=== PATIENT | male | born 1950 | race Caucasian/White ===

== ENCOUNTER 2017-04-28 17:03 | Inpatient (IN) | payer OTHER ==
--- NOTE | 2017-04-28 17:19 | EDPHY ---
H & P Stated Complaint: pt came for leg inf but was tachypneic and hypoxic at triage HPI/ROS: CHIEF COMPLAINT: Bilateral leg infection, shortness of breath HISTORY OF PRESENT ILLNESS: The patient is a 66 y/o male with a history of tobacco abuse presenting with a bilateral leg infection and pain, the left leg is more painful than the right. For the past week has has felt more short of breath than usual and reports a cough with sputum production. His throat feels dry. He went to [facility] for his leg infection, and was prescribed Keflex and Bactrim on 04/21/17. He has been compliant with these antibiotics. Today he is experiencing chills and sweats. Denies illicit drug or alcohol use. At triage he was tachypneic and hypoxic. Denies chest pain, abdominal pain, vomiting, urinary or bowel complaints. In addition to his extremity and pulmonary symptoms, he is also complaining of body lice. REVIEW OF SYSTEMS: A ten point review of systems was performed and is negative with the exception of the items mentioned in the HPI. Past medical history: Denies but has a history of tobacco abuse, smoking 1 pack per day. Past surgical history: 1. Appendectomy 2. L5-S1 surgery Family history: Denies Social history: Transient, homeless, single, smoker (38 years), no alcohol or illicit drug use. General Appearance: Alert. Disheveled. Poor personal hygiene. Vital signs reviewed. Respiratory rate 34, room air pulse ox 76% at triage. Hair and holder are long and matted. Eyes: Pupils equal and round, no conjunctival injection, no discharge. Anicteric. ENT, Mouth: Mucous membranes are dry, no oropharyngeal erythema or edema. Neck: No lymphadenopathy, supple. Respiratory: Distant breath sounds with bilateral wheezes to auscultation. No rales, or rhonchi. Cardiovascular: Regular rate and rhythm; no murmur, rub, or gallop. Gastrointestinal: Abdomen is soft and nontender, no masses or organomegaly, bowel sounds normal. Skin: Excoriations on chests, arms, and legs. Lower extremities have blistering and weeping, no purulence. No significant warmth of lower extremities. Back: Nontender to palpation over the thoracolumbar spine. No CVAT. Extremities: Bilateral foot maceration. Bilateral pedal edema to the knees. Superficial ulcerations both lower extremities. Neurological: Alert and oriented. Moving all four extremities easily and equally. GIL. EOMI. Tongue midline. Facial expressions symmetric. Psychiatric: Normal affect. - Personal History Current Tetanus/Diphtheria Vaccine: Unsure - Medical/Surgical History Hx Asthma: No Hx Chronic Respiratory Disease: No Hx Diabetes: No Hx Cardiac Disease: No Hx Renal Disease: No Hx Cirrhosis: No Hx Alcoholism: No Hx HIV/AIDS: No Hx Splenectomy or Spleen Trauma: No Other PMH: denies - Social History Smoking Status: Current every day smoker Constitutional: Initial Vital Signs Temperature (C) 36.8 C 04/28/17 17:11 Heart Rate 87 04/28/17 17:11 Respiratory Rate 34 H 04/28/17 17:11 Blood Pressure 119/62 04/28/17 17:11 O2 Sat (%) 76 L 04/28/17 17:11 O2 Delivery Mode Nasal Cannula O2 (L/minute) 2 Allergies/Adverse Reactions: No Known Allergies Allergy (Unverified 04/28/17 17:11) Home Medications: Medication Instructions Recorded Sulfamethox/Tmp 800/160 mg 1 tab PO BID 04/28/17 [Bactrim Ds] Medical Decision Making - Diagnostics Imaging: Discussed imaging studies w/ director medical economics Radiologist, I viewed and interpreted images myself ED Course/Re-evaluation: The patient is a 66 y/o male presenting with shortness of breath and a bilateral leg infection. His legs are currently wrapped from a treatment at [facility]. At triage he was tachypneic and hypoxic; patient was subsequently placed on supplemental oxygen. His respiratory rate was 34 at triage with a pulse oximetry of 76% on room air. On 4 L nasal cannula his subsequent pulse ox was 97%. At triage his blood pressure was 119/62 with a heart rate of 87. He is afebrile. He does not meet sepsis criteria based upon triage vital signs. Chest x-ray and labs ordered. DuoNeb administered. 1815: Reassessed patient. He is receiving a DuoNeb; his breath sounds are still distant. I examined his lower extremities, there is bilateral maceration to his feet. Denies history of lanza bite but I am concerned as his feet were in wet socks and he lives outside. His lower extremities are edematous and erythematous, not particularly warm to the touch. There is superficial ulcers on his legs. Patient will need to admitted for more extensive care of his lower extremities. I suspect cellulitis combined with exposure. He has been taking oral antibiotics but will likely require IV antibiotics (vancomycin). His white blood cell count is elevated 18,000. I am not finding evidence of a pulmonary infection. He has no urinary symptoms. His abdomen is soft and nontender and I do not suspect an intra-abdominal process or infection. He appears to be mentating normally and is cooperative in the emergency department. No meningeal signs. No signs of trauma. He is hyponatremic and likely dehydrated. 1925: Spoke with radiologist, regarding the patient's chest x-ray. His x-ray reveals a COPD. My initial concern was that he had a pneumonia. He was given ceftriaxone. However, there is no infiltrate on his chest x-ray. This appears to be a COPD exacerbation. He will be treated with nebulizers and steroids. 1934: Consulted with hospitalist service, Dr. Rodriguez accepts admission of this patient. 125mg IV Solu-Medrol administered. 2017: Reassessed patient, he is comfortable with plan for admission. It appears he has bed bugs--there are bugs seen on his bed and I suspect that they are bed bugs, he will be sent to the shower but is currently refusing to cut his hair. I have not seen lice. I do not see evidence of scabies either. Patient was taken to the shower and then admitted to his hospital bed. I note, in retrospect, [place] [id number] he meets sepsis criteria. The admitting physician has recognized this and has ordered the appropriate laboratory studies and IV fluids. - Data Points Laboratory Results: Laboratory Results 04/28/17 19:00 04/28/17 19:00 04/28/17 19:00 Procalcitonin 0.07 ng/mL ng/mL (0.02-0.10) Medications Given: Albuterol (Proventil Neb) 3 ml IH QID [facility] Stop: 10/25/17 20:59 Last Admin: 04/29/17 04:55 Dose: Not Given Vancomycin/Sodium Chloride (Vancomycin 1 Gm (Premix)) 250 mls @ 250 mls/hr IV Q12H [facility] Stop: 05/28/17 23:29 Last Admin: 04/29/17 01:05 Dose: 250 mls Oxycodone HCl (Oxycodone Ir) 5 - 10 mg PO Q3HRS PRN PRN Reason: Pain, Severe Able to Take PO Stop: 05/08/17 20:26 Last Admin: 04/29/17 09:52 Dose: 5 mg Discontinued Medications Albuterol/Ipratropium (Duoneb) 3 ml IH EDNOW ONE Stop: 04/28/17 17:33 Last Admin: 04/28/17 17:48 Dose: 3 ml Ceftriaxone Sodium 1 gm/ (Sterile Water) 10 mls @ 150 mls/hr IV EDNOW ONE PRN Reason: Protocol Stop: 04/28/17 20:11 Last Admin: 04/28/17 21:16 Dose: 10 mls Sodium Chloride (Ns) 1,000 mls @ 75 mls/hr IV CONT [facility]IO Stop: 04/30/17 09:49 Last Admin: 04/28/17 23:14 Dose: 1,000 mls Sodium Chloride (Ns) 500 mls @ 500 mls/hr IV ONCE ONE Stop: 04/28/17 23:42 Last Admin: 04/28/17 23:13 Dose: 500 mls Methylprednisolone Sodium Succinate (Solu-Medrol) 125 mg IVP EDNOW ONE Stop: 04/28/17 19:34 Last Admin: 04/28/17 19:36 Dose: 125 mg Methylprednisolone Sodium Succinate (Solu-Medrol) 60 mg IVP Q6HRS MARIO Stop: 10/26/17 00:00 Last Admin: 04/29/17 09:43 Dose: Not Given Permethrin (Elimite 5%) 1 manuel TP ONCE ONE Stop: 04/29/17 06:01 Last Admin: 04/29/17 08:55 Dose: 1 manuel Pyrethrins/Piperonyl Butoxide (Lice Combo Kit) 118 ml TP ONCE ONE Stop: 04/29/17 07:40 Last Admin: 04/29/17 08:30 Dose: 1 manuel Departure - Departure Disposition: [facility] Clinical Impression: COPD exacerbation, Maceration of skin Cellulitis Qualifiers: Site of cellulitis: extremity Site of cellulitis of extremity: lower extremity Laterality: unspecified laterality Qualified Code(s): L03.119 - Cellulitis of unspecified part of limb Condition: Fair Report Scribed for: Cora Beltre Report Scribed by: Xochitl Briceño Date of Report: 04/28/17 Time of Report: 17:19 Physician Review and Approval Statement: 04/28/17 17:19 Portions of this note were transcribed by the internist medical doctor md. I, Dr. Cora Beltre, personally performed the history, physical exam, and medical decision- making; and confirmed the accuracy of the information in the transcribed note.
[2017-04-28] MEDS ORDERED: IPRATROPIUM/ALBUTEROL 3 ML DEYVIAL IH ONE (17:32)
[2017-04-28 19:16] LABS: PLATELET COUNT 413 10^3/uL (150-400)
[2017-04-28] MEDS ORDERED: methylPREDNISolone SOD SUCC 125 MG/2 ML VIAL IVP ONE (19:33)
[2017-04-28] MEDS ORDERED: cefTRIAXone 1 GM in STERILE WATER INJ 10 ML IV ONE (20:08)
[2017-04-28] MEDS ORDERED: ONDANSETRON DISINTEGRATING 4 MG TAB PO PRN (20:27)
[2017-04-28] MEDS ORDERED: oxyCODONE IR 5 MG TAB PO PRN (20:27)
[2017-04-28] MEDS ORDERED: ACETAMINOPHEN 325 MG TAB PO PRN (20:27)
[2017-04-28] MEDS ORDERED: ONDANSETRON 4 MG/2 ML VIAL IVP PRN (20:27)
[2017-04-28] MEDS ORDERED: ALBUTEROL 3 ML DEYVIAL IH PRN (20:27)
[2017-04-28] MEDS ORDERED: NS 1,000 ML IV SCH (20:30)
--- NOTE | 2017-04-28 22:33 | PDGENHP ---
History and Physical - Chief Complaint SOB, leg infection - History of Present Illness The patient is a 66 y/o male presenting with fever, malaise, and SOB. He was recently seen in clinica and started on abx for bilateral leg infection. He also c/o of SOB with cough. He has a long hx of tobacco use. He was 76% on RA in the E.D. WBC was increased at 18.54. He was started on Rocephin and given Solumedrol CXR shows peribronchial thickening and hyperexpansion. There is no e/o infection He does not have any urinary sx's He denies CP, palpitations. He is homeless He also c/o of Lice PMHx: tobacco abuse, homelessness Past surgical history: 1. Appendectomy 2. L5-S1 surgery Family history: [place] Social history: tobacco use, denies ETOH or illicits History Information - Allergies/Home Medication List Allergies/Adverse Reactions: No Known Allergies Allergy (Unverified 04/28/17 17:11) Home Medications: Sulfamethox/Tmp 800/160 mg [Bactrim Ds] 1 tab PO BID 04/28/17 [Last Taken 09:00] I have personally reviewed and updated: medical history, social history - Social History Smoking Status: Current every day smoker Review of Systems Review of Systems: ROS: 10pt was reviewed & negative except for what was stated in HPI & below Physical Exam Physical Exam: Temp Pulse Resp BP Pulse Ox 36.8 C 79 24 H 115/63 94 04/28/17 17:11 04/28/17 21:15 04/28/17 21:15 04/28/17 21:15 04/28/17 21:15 O2 (L/minute) 2 Constitutional: no apparent distress Eyes: PERRL, EOMI Ears, Nose, Mouth, Throat: dry mucous membranes Cardiovascular: regular rate and rhythym, edema Respiratory: reduced air movement, expiratory wheeze, No no respiratory distress Gastrointestinal: normoactive bowel sounds, soft, non-tender abdomen Skin: warm Neurologic: No AAOx3 Psychiatric: interacting appropriately, not anxious Lymph, Heme, Immunologic: No petechiae Lab Data & Imaging Review 04/28/17 19:00 04/28/17 19:00 WBC 18.54 10^3/uL (3.80-9.50) H 04/28/17 19:00 RBC 4.95 10^6/uL (4.40-6.38) 04/28/17 19:00 Hgb 13.7 g/dL (13.7-17.5) 04/28/17 19:00 Hct 42.2 % (40.0-51.0) 04/28/17 19:00 MCV 85.3 fL (81.5-99.8) 04/28/17 19:00 MCH 27.7 pg (27.9-34.1) L 04/28/17 19:00 MCHC 32.5 g/dL (32.4-36.7) 04/28/17 19:00 RDW 14.9 % (11.5-15.2) 04/28/17 19:00 Plt Count 413 10^3/uL (150-400) H 04/28/17 19:00 MPV 9.4 fL (8.7-11.7) 04/28/17 19:00 Neut % (Auto) 88.9 % (39.3-74.2) H 04/28/17 19:00 Lymph % (Auto) 4.7 % (15.0-45.0) L 04/28/17 19:00 Ward % (Auto) 4.5 % (4.5-13.0) 04/28/17 19:00 Eos % (Auto) 0.1 % (0.6-7.6) L 04/28/17 19:00 Baso % (Auto) 0.5 % (0.3-1.7) 04/28/17 19:00 Nucleat RBC Rel Count 0.0 % (0.0-0.2) 04/28/17 19:00 Absolute Neuts (auto) 16.48 10^3/uL (1.70-6.50) H 04/28/17 19:00 Absolute Lymphs (auto) 0.87 10^3/uL (1.00-3.00) L 04/28/17 19:00 Absolute Monos (auto) 0.84 10^3/uL (0.30-0.80) H 04/28/17 19:00 Absolute Eos (auto) 0.01 10^3/uL (0.03-0.40) L 04/28/17 19:00 Absolute Basos (auto) 0.09 10^3/uL (0.02-0.10) 04/28/17 19:00 Absolute Nucleated RBC 0.00 10^3/uL (0-0.01) 04/28/17 19:00 Immature Gran % 1.3 % (0.0-1.1) H 04/28/17 19:00 Immature Gran # 0.25 10^3/uL (0.00-0.10) H 04/28/17 19:00 Sodium 131 mEq/L (135-145) L 04/28/17 19:00 Potassium 4.5 mEq/L (3.5-5.2) 04/28/17 19:00 Chloride 92 mEq/L (97-110) L 04/28/17 19:00 Carbon Dioxide 25 mEq/l (22-31) 04/28/17 19:00 Anion Gap 14 mEq/L (8-16) 04/28/17 19:00 BUN 21 mg/dL (7-23) 04/28/17 19:00 Creatinine 0.7 mg/dL (0.7-1.3) 04/28/17 19:00 Estimated GFR > 60 04/28/17 19:00 Glucose 71 mg/dL (70-100) 04/28/17 19:00 Calcium 9.2 mg/dL (8.5-10.4) 04/28/17 19:00 Nasal Influenza A PCR NEGATIVE FOR FLU A (NEGATIVE) 04/28/17 18:30 Nasal Influenza B PCR NEGATIVE FOR FLU B (NEGATIVE) 04/28/17 18:30 Assessment & Plan Assessment: #Acute Respiratory Failure #Fever with SIRS per criteria (Fever, Tachypnea, Leukocytosis) #COPD exacerbation #Cellulitis, bilateral lower extremity #Dehydration #Hyponatremia Plan: -admission -Provide IVF now -PC, lactic acid, send blood cultures now -He was given Rocephin in the E.D. I will also provide Vancomycin. Other than cellulitis, I do not see a source. Pending clinical course, he can likely continue Vancomycin alone -Cont Solumedrol, schedule nebs -Lovenox for DVT proph Total critical time spent is 60 mins for this patient meeting SIRS criteria with resp failure and significant dehydration, possibly sepsis.
[2017-04-28] MEDS ORDERED: NS 500 ML IV ONE (22:43)
[2017-04-29] MEDS: ALBUTEROL 3 ML DEYVIAL IH SCH ×4 (00:15→17:04)
[2017-04-29] MEDS: VANCOMYCIN HCL/NORMAL SALINE 250 ML IV SCH ×3 (01:05→17:35)
[2017-04-29] MEDS: methylPREDNISolone SOD SUCC 125 MG/2 ML VIAL IVP SCH ×2 (01:30→09:43)
[2017-04-29] MEDS ORDERED: PERMETHRIN 5% 60 GM CREAM TP ONE (06:00)
--- NOTE | 2017-04-29 06:36 | HOSPPROG ---
Hospitalist Progress Note Assessment/Plan: Called to patient's bedside by RN and ARN due to erratic behavior. Patient refusing all care and causing disturbance on the unit for staff and other patients. Upon evaluation patient is confrontational and irrational. He is unable to explain to me why he is here and why he needs medical care. Noting hypoxia, respiratory distress, and sepsis physiology patient is at high risk for poor outcome. I do not believe he has medical decision making capacity at this time noting his inability to understand his current situation and the consequences of leaving against medical advice. As a result, I will put him on a medical detainer at this time. Objective: Vital Signs Temp Pulse Resp BP Pulse Ox 36.8 C 74 20 137/83 H 95 04/29/17 04:11 04/29/17 04:11 04/29/17 04:11 04/29/17 04:11 04/29/17 04:11 04/28/17 04/29/17 04/30/17 05:59 05:59 05:59 Intake Total 30 Output Total 250 Balance -220 ICD10 Worksheet Patient Problems: Problems Problem Status Onset COPD exacerbation Acute Cellulitis Acute Maceration of skin Acute
[2017-04-29] MEDS ORDERED: LICE KILLING SHAMPOO 118 ML TP ONE (07:39)
[2017-04-29] MEDS: ENOXAPARIN 40 MG/0.4 ML SYR SC SCH (10:00)
[2017-04-29] MEDS ORDERED: ALTEPLASE 2 MG VIAL IVP PRN (10:06)
[2017-04-29] MEDS: predniSONE 20 MG TAB PO SCH (11:01)
[2017-04-29] MEDS: CEPHALEXIN 500 MG CAP PO SCH ×3 (11:01→17:41)
[2017-04-29] MEDS: IPRATROPIUM/ALBUTEROL 3 ML DEYVIAL IH SCH ×3 (11:31→23:45)
--- NOTE | 2017-04-29 15:00 | WOCRNPDOC ---
WOCRN Advanced Assessment Note - Skin Integrity Problem, Advanced Assess Left Toe Dressing Type: Open to Air Exudate Amount: None Exudate Characteristic(s): None Gypsy Wound Tissue: Blanching, Erythema Gypsy Wound Swelling: None Wound Bed Color: Black Wound Bed Constitution: Stable Eschar Site Measurement - Head-to-Toe Length X Width X Depth (cm): L 2nd toe: 0.6cmx0.5cmx eschar. L3rd toe: 0.7cmx0.5cmx eschar Skin Integrity Problem Comment: Stable, dry eschar noted to L 2nd and 3rd toes along the medial aspect. Uncertain if these wounds are the result of frostbite or arterial insufficiency, or a combination of both. Erythema throughout entire LLE, extending up to just below knee. Skin is taut, trace pitting edema in the L foot. I was unable to palpate a DP pulse in this extremity, and am averse to applying any dressing that might confer moisture to necrotic tissue. Will write order to paint eschar on the toes w/ Povidone/Iodine swabs BID until arterial sufficiency can be confirmed. Bilateral Lower Leg Dressing Type: Open to Air Exudate Characteristic(s): Dried Gypsy Wound Tissue: Erythema, Swollen, Hemosiderin Staining, Venous Dermatitis, Shiny (hairless, taut), Painful/Tender Wound Bed Color: Black, Brown, Yellow Wound Bed Constitution: Scab, Adhered Slough Skin Integrity Problem Comment: Scattered wounds noted over both lower legs. Erythema throughout BLE, w/ taut, dry skin. Skin changes consistent w/ mixed arterial and venous insufficiency present. There are both diffuse and punctate- appearing wounds w/ dried necrotic tissue evident. I am reluctant to initiate any wound care at this point due to concerns about arterial insufficiency; applying moisture to necrotic tissues could result in wet gangrene. Recommend arterial studies to confirm sufficient blood flow.
--- NOTE | 2017-04-29 15:18 | GCON ---
[f rep st] CONSULTATION PULMONARY CONSULTATION DATE OF CONSULTATION: 04/29/2017 HISTORY OF PRESENT ILLNESS: This patient is a 66-year-old male admitted yesterday through the emerge ncy department when he complained of a fever, shortness of breath, and a foot infection, was found to have an oxygen saturation of 76% on room air. He apparently had been seen in the clinic prior to is and was taking some antibiotics for his foot infection, but continued to have problems. On admiss [facility], again, he had the hypoxemia, a white count of 18,000, and a chest x-ray that showed hyperinflati on. He was diagnosed with a COPD exacerbation and cellulitis. He was also found to have a sodium of 131, as well as lice and scabies. He is homeless and much of his social history is unknown to me. He was treated appropriately with antibiotics, steroids and nebulizers and appeared to be relatively stable, but last evening had difficulty with erratic behavior, apparently was in other patients' room s and became very uncooperative with staff. Subsequently, he was evaluated by the night hospitalist, who thought his medical decision capacity was compromised and put him on a detainer, and he ended up in the intensive care unit. At my visit, he was fairly cooperative, but denied any symptoms other than his feet. He said he had no shortness of breath or cough. Said that he was supposed to be on oxygen as an outpatient, but was uncertain as to why he was not using it now. He was otherwise cooperative. REVIEW OF SYSTEMS: Otherwise negative. PAST MEDICAL HISTORY: As best I can tell, is COPD, chronic hypoxemia, although he does have a hemato crit of only 42, and current cellulitis, as well as lice and scabies. PAST SURGICAL HISTORY: Includes appendectomy and back surgery. SOCIAL HISTORY: He is a current smoker, but no alcohol or IV drug use that I am aware of. MEDICATIONS: At this time, include albuterol p.r.n., DuoNeb q.6 hours, Keflex, Lovenox, Zofran, pred nisone 40 mg a day, and vancomycin. PHYSICAL EXAMINATION: VITAL SIGNS: He was afebrile. His blood pressure 126/54, heart rate 88, resp irations 20, oxygen saturation last recorded was 97% on 2 L, but he was not monitored at the time of my visit. GENERAL: He was fairly unkempt but awake and alert, and in no apparent distress; knew whe re he was and was able to answer questions appropriately. HEENT: His hair was filthy. I did not ex amine closely for lice. Pupils appeared to be equally round and reactive to light, nonicteric and no ninjected. Mucous membranes moist without erythema or exudate. No evidence of thrush. RESPIRATORY: Breath sounds were clear to auscultation bilaterally without wheezes, rubs or rales. HEART: Regul ar rate and rhythm without obvious murmurs, rubs, gallops. ABDOMEN: Soft, nontender, nondistended w ithout hepatosplenomegaly. EXTREMITIES: Lower extremities were different from left to right. The l eft had multiple scabs in varying states of healing without substantial erythema or edema. The right had some edema with some erythema as well. He had significant onychomycoses on both feet. NEUROLOG ICAL: Exam was nonfocal including cranial nerves, deep tendon reflexes. SKIN: As described. OBJECTIVE DATA: Includes labs from yesterday at 1900 hours; his white count was 18.5, hematocrit 42, platelets of 413. Lactate was 3.7, sodium 131, otherwise unremarkable. Flu swab was negative for A and B. Chest x-ray showed no infiltrates but hyperinflation. ASSESSMENT AND PLAN: 1. Probable chronic obstructive pulmonary disease exacerbation, though he does deny shortness of eugenia ath at this time. I agree with the reduction in steroids which certainly could contribute to intermi ttent delirium and psychoses. He denies any symptoms at this time. He is getting scheduled nebulize rs. We could consider a more rapid steroid taper, given his behavioral problems. 2. Cellulitis. He is getting antibiotics. Blood cultures are negative at this time. 3. Scabies and lice. This is being managed by the primary team. 4. Erratic behavior. I will defer to the hospitalist team to determine his decisional capacity, vinod mcneil appears to be relatively intact to me at the moment. /[id number]/[id number]
--- NOTE | 2017-04-29 15:33 | HOSPPROG ---
Hospitalist Progress Note Assessment/Plan: Assessment: 66-year-old male presents with acute foot pain in the setting of necrotic foot wounds and cellulitis complicated by acute encephalopathy Plan: 1. Necrotic foot wounds and cellulitis. The patient definitely has evidence of cellulitis on his bilateral lower extremities with confluent blanchable erythema and central ulcerations, requiring antibiotic therapy. He also has distal toe necrosis and I suspect the patient has an element of frostbite given that he presumably resides outdoors and has elements of foot skin trauma. We do not believe the patient was overtly septic on presentation. -with IV antibiotics indicated, patient is currently refusing peripheral IV lines but has agreed to a PICC line -once the patient has a PICC line in place, will continue administering IV vancomycin, but in the interim, will administer oral Keflex -wound care consultation appreciated, infectious Disease consultation appreciated -will get aortic runoff as well as lower extremity angiography to determine whether the patient has adequate blood supply for wound care or whether he needs a surgical evaluation given absent dorsalis pedis pulses 2. Acute hypoxic respiratory failure. Evidenced by SpO2 of 76% on room air, objective tachypnea respiratory rate of 34, symptomatic shortness of breath, audible wheezing, visible tachypnea, most likely secondary to acute COPD exacerbation. -continue on supplemental oxygen, patient does not wear oxygen at baseline, currently requiring 4.5 L -continue treatment for acute COPD exacerbation 3. Acute COPD exacerbation. Patient issue lysed on IV steroids and scheduled duo nebs, patient's IV steroids have been converted to oral given his lack of IV access as well as possible acute agitation and aggression in the setting of high-dose steroids -continue on prednisone 40 mg daily, will engage in a rapid taper if possible -placed on scheduled duo nebs -patient most likely has under treated COPD at baseline, as he is a chronic smoker, and he does not engage in any medical care -appreciate ongoing pulmonary consultation by Dr. Gasca 4. Acute encephalopathy. Evidenced by brain dysfunction characterized as confusion, inability to cooperate or engage in any conversation with last night' s reliability manager provider, patient also wandering into other patient's rooms and causing a disturbance, most likely secondary to the toxic effects of infection -patient placed on a detain her overnight given that he did not appear to have decisional capacity when evaluated by Dr. Patrick -upon my thorough evaluation of the patient this morning, he does have decisional capacity, a detainer will be lifted -if the patient request to leave against medical advice, he should be re- evaluated by the covering hospitalist, determine whether he has decisional capacity at the time of that decision -at the time, he is not gravely disabled an M1 hold would be inappropriate -continue to work with the patient's most likely underlying personality disorder , and will have been able Health Resource nurse assist in his care 5. 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 The patient has voiced to this provider that he would like to be left alone by humans, he does not want to be around humans, and he attempts to live his life away from for humans as much as possible. 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 -appreciate Behavioral Health Resource nurse assistance -will request formal TLC consultation after the patient is medically cleared -will continue to work with the patient to perform care which will be agreeable to him 6. Acute metabolic acidosis. Most likely secondary to volume depletion in the setting of infection, initially received IV fluids in the emergency department, then he refused any additional labs. 7. Acute hyponatremia. Most likely secondary to hypovolemia in the above, patient refused labs this morning for ongoing monitoring. -hopefully once the patient has a PICC line, we will be able to monitor his labs and be as minimally invasive to the patient as possible Diet. Regular Prophylaxis. High risk patient, Lovenox we Code. Full Disposition. Anticipated discharge uncertain, patient remains critically ill with high risk of mortality secondary to his necrotic foot wounds and cellulitis. 50 min of critical care time spent with this patient, at bedside, coordinating care with the ICU staff, specifically addressing his personality issues and encephalopathy as well as his necrotic foot wounds. Subjective: patient wants to be left alone, has pain in feet Objective: Vital Signs Temp Pulse Resp BP Pulse Ox 36.8 C 88 24 H 126/54 H 97 04/29/17 04:11 04/29/17 09:58 04/29/17 09:58 04/29/17 09:58 04/29/17 09:58 04/28/17 04/29/17 04/30/17 05:59 05:59 05:59 Intake Total 30 Output Total 250 Balance -220 - Physical Exam Constitutional: chronically ill appearing, uncomfortable, unkempt, No not in pain (moderate) Cardiovascular: regular rate and rhythym, no murmur, rub, or gallop, other ( diminished pulses bilat dorsalis pedis) Respiratory: reduced air movement (on exp bilat), expiratory wheeze, bronchial breath sounds, respiratory distress (pursed lip breathing) Gastrointestinal: normoactive bowel sounds, soft, non-tender abdomen, no palpable masses Skin: other (confluent erythema bilat LE w/ blanchability, many ulcerations, necrosis bilat toes, open ulcers) Neurologic: AAOx3, sensation intact bilaterally, No facial droop Psychiatric: thought process linear, anxious, agitated, other (demonstrating capacity to make decisions, concentration 7/7, naming 3/3, uncooperative w/ some requests on exam) ICD10 Worksheet Patient Problems: Problems Problem Status Onset COPD exacerbation Acute Cellulitis Acute Maceration of skin Acute
[2017-04-29] MEDS ORDERED: NS 1,000 ML IV SCH (16:00)
[2017-04-30 03:40] LABS: PLATELET COUNT 329 10^3/uL (150-400)
[2017-04-30] MEDS: IPRATROPIUM/ALBUTEROL 3 ML DEYVIAL IH SCH ×4 (05:45→23:25)
[2017-04-30] MEDS: VANCOMYCIN HCL/NORMAL SALINE 250 ML IV SCH ×2 (06:06→17:20)
[2017-04-30] MEDS: ENOXAPARIN 40 MG/0.4 ML SYR SC SCH (11:00)
[2017-04-30] MEDS: predniSONE 20 MG TAB PO SCH (11:00)
[2017-04-30] MEDS: FLUCONAZOLE 100 MG TAB PO SCH (11:00)
[2017-04-30 12:14] LABS: HEPATITIS B SURFACE ANTIGEN NEGATIVE (NEGATIVE)
[2017-04-30 12:31] LABS: HEPATITIS C ANTIBODY TOTAL NEGATIVE (NEGATIVE); HIV TYPE 1 AND 2 NEGATIVE (NEGATIVE)
--- NOTE | 2017-04-30 14:00 | PDINTPN ---
Farm Assistant Progress Note Assessment/Plan: Assessment/plan: 66 M homeless admitted with bilateral foot pain and found to have severe cellulitis and possible frostbite, as well as possible COPD exacerbation. Hospital coutrse complicated by bizzare behavior and inappropriate interaction with other patients, so transferred to ICU for detainer. Also with both scabies and head lice. * COPD- quite stable with minimal O2 requirement. Hard to know what his actual baseline is, but desats to mid 80's on RA. Continue nebs but consdier lower dose steroids (eg pred 20/d with taper over 5 days) to facilitate improved behavioral aspects. * Hypoxia- titrate to sat >90 * Cellulitis- on abx. Vascular studies pending Subjective: denies sob, cp, wheezing Objective: Vital Signs Temp Pulse Resp BP Pulse Ox 36.5 C 71 20 103/50 L 100 04/30/17 08:00 04/30/17 12:08 04/30/17 12:08 04/30/17 08:00 04/30/17 12:08 Laboratory Results 04/30/17 03:20 04/30/17 03:20 04/29/17 04/30/17 05/01/17 05:59 05:59 05:59 Intake Total 30 960 Output Total 250 Balance -220 960 Physical Exam - Physical Exam General Appearance: alert, no apparent distress, other (dishevled, unkempt) EENT: PERRL/EOMI Neck: supple Respiratory: lungs clear, normal breath sounds, No respiratory distress, No accessory muscle use Cardiac/Chest: regular rate, rhythm, edema Abdomen: non-tender, soft, No distended Skin: warm/dry, decubitus, other, No cyanosis Lymphatic: no adenopathy Extremities: pedal edema Neuro/Psych: alert, normal mood/affect, cognition abnormalities ICD10 Worksheet Patient Problems: Problems Problem Status Onset COPD exacerbation Acute Cellulitis Acute Maceration of skin Acute
--- NOTE | 2017-04-30 15:10 | GCON ---
[f rep st] CONSULTATION INFECTIOUS DISEASE DATE OF CONSULTATION: 04/30/2017 REFERRING PHYSICIAN: Alfredo Olivera MD REASON FOR CONSULTATION: Evaluate wounds lower extremity, query cellulitis. HISTORY OF PRESENT ILLNESS: A 66-year-old homeless male who is cared for at [facility], who presents to the emergency room with progressive bilateral lower extremity pain. At the time of evaluation, the patient was also noted to be hypoxic, but today patient denies particularly being short of breath. He also noted on admission that he had chills and sweats and today denies that. He does describe tongue pain for the last couple days and that his cough may be slightly worse than baseline. The patient reports his lower extremity issues started a couple months ago when he wrapped his legs to stay warm and avoid the wind. These wrappings became wet and generated the wounds on his lower extremity. He says he has been treating them by rubbing them aggressively, but they have not healed. Today, discussion regarding etiology of these wounds was discussed with patient , likely a combination of trauma as well as nonhealing due to blood flow limitations likely from peripheral vascular disease, but he refuses further workup at this time. Additional complaints on admission included body lice. REVIEW OF SYSTEMS: A complete 10-point review of systems was performed and is negative except as mentioned in the HPI. The patient describes a 20-pound weight loss over unclear duration of time, which he primarily attributes to limited food supply. PAST MEDICAL AND SURGICAL HISTORY: The patient has longstanding tobacco use, 1- pack per day. He has had an appendectomy and prior back surgery at the L5-S1 level. ALLERGIES: NKDA. MEDICATIONS: Include Prednisone 40 mg and vancomycin 1 g IV q.8. He is also on oxycodone, Zofran, Lovenox, albuterol nebs, and Tylenol. FAMILY HISTORY: The patient is reluctant to provide any additional information. SOCIAL HISTORY: The patient has been in the [facility] for 45 years. He has been homeless for 15. He is not sexually active and single. Denies alcohol and illicit drug use. He has been using tobacco for 38 years. PHYSICAL EXAMINATION: VITAL SIGNS: The patient has been afebrile throughout his hospital course. Temperature 36.3, blood pressure 115/58, heart rate 71, respiratory rate 24, saturation is in the high 80s on room air. GENERAL: This is a disheveled, tanned, thin male, in very mild respiratory distress, but is speaking in complete sentences. He has very poor hygiene. HEENT: No conjunctival hemorrhages. No jaundice. The patient has diffuse white plaques scattered throughout his mouth and minimal residual dentition with obvious dental caries. NECK: Supple. CARDIOVASCULAR: Regular rate and rhythm. No murmurs. CHEST: Poor air movement. Scattered wheezes. No crackles. ABDOMEN: Soft, nontender. : No Georges. Bilateral distended testis. Circumcised phallus. EXTREMITIES: Patient has irregular wounds on bilateral lower extremity with hyperemia surrounding. The base of many of these wounds have areas of necrosis. No fluctuance was detected. Minimal warmth. In fact, his legs are on the cool side. Pulses were not palpable. He has ischemic changes on the tips of his 2nd and 3rd right toes. His capillary refill was okay. Obvious complete absence of hair. NEUROLOGIC: The patient had a somewhat flat affect, but was cooperative. No obvious cranial nerve defects. He was moving all 4 extremities equally. LABORATORY: White count 17, hematocrit 34, platelets of 324, 84% neutrophils. Creatinine 0.6. AST 66, ALT 60, alkaline phosphatase 52. Blood cultures from 04/28: 2 sets are no growth to date. Procalcitonin was 0.07. Flu A and B were negative. Chest x-ray, which was personally reviewed by me, showed expanded lung jolley bilaterally without infiltrate. ASSESSMENT AND PLAN: This is a 66-year-old male who is homeless, who presents with multiple problems. 1. Increased lower extremity pain with findings consistent with ischemic changes, not clearly active cellulitis. Nonetheless, would continue antibiotics for a 48-hour period, monitoring blood cultures and clinical response. Vancomycin is a reasonable choice in this gentleman who is at risk for MRSA due to homelessness. At the time of my exam today, the patient was refusing further workup for ischemic changes. 2. Oral thrush. Would start patient on oral fluconazole 200 mg daily with a duration of therapy 7-10 days. Would send a screening HIV, hep C, hep B. 3. Leukocytosis. The patient has blood cultures pending. No clear focus of infection based on my exam today. This could be a leukemoid reaction due to ischemic changes of the lower extremities. 4. Bedbug/body lice. Patient with extensive dreadlocks, will make getting rid of bedbugs and lice difficult. Will go to additional protocol of systemic therapy with ivermectin 200 mcg/kg x2 doses 7 days apart, which calculates to 12 g based on his weight. time 65min >50% time spent with education of patient about etiology of LE changes and Care coordinated with Dr. Olivera. Will continue to follow the patient on a daily basis. /[id number]/MODL MTDD
[2017-04-30] MEDS: IVERMECTIN 3 MG TAB PO SCH (17:20)
--- NOTE | 2017-04-30 19:46 | HOSPPROG ---
Hospitalist Progress Note Assessment/Plan: Assessment: 66-year-old male presents with acute foot pain in the setting of necrotic foot wounds, suspected ischemic digits, and possible cellulitis complicated by acute encephalopathy and acute hypoxic respiratory failure Plan: # Necrotic foot wounds and suspected digit ischemia. Likely peripheral arterial disease, examined w/ Dr. Valdez - encouraged patient to allow vascular studies (CT angio) to help guide tx plan , he will consider - patient only intermittently taking ASA, will order scheduled w/ lipid panel - cont wound care - cont pain control - begin SNF auth process # Possible cellulitis. Given leukocytosis, erythema, and exposure, will cont tx w/ IV Abx x 48hrs and gauge effect - cont Vanco via PICC - cont monitor WBC # Acute hypoxic respiratory failure. Evidenced by SpO2 of 76% on room air, objective tachypnea respiratory rate of 34, symptomatic shortness of breath, audible wheezing, visible tachypnea, most likely secondary to acute COPD exacerbation. -continue on supplemental oxygen, patient does not wear oxygen at baseline, currently requiring 4.5 L -continue treatment for acute COPD exacerbation # Acute COPD exacerbation. Exp wheeze on presentation, pursed lip breathing -continue on prednisone 40 mg daily, will engage in a rapid taper if possible -placed on scheduled duo nebs -patient most likely has under treated COPD at baseline, as he is a chronic smoker, and he does not engage in any medical care -appreciate ongoing pulmonary consultation by Dr. Gasca # Acute encephalopathy. 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 Patient participating more in care, encouraging him, establishing trust -appreciate Behavioral Health Resource nurse assistance -will request formal TLC consultation after the patient is medically cleared -will continue to work with the patient to perform care which will be agreeable to him # Acute metabolic acidosis. Resolved # Acute hyponatremia. Resolved # Thrush. Started fluconazole 200 # Body lice. Ivermectin started Diet. Regular Prophylaxis. High risk patient, Lovenox Code. Full Disposition. Anticipated discharge uncertain, patient remains ill and unable to care for self. Subjective: ongoing foot pain, patient feels like he can't walk Objective: Vital Signs Temp Pulse Resp BP Pulse Ox 36.4 C 69 20 90/56 L 100 04/30/17 16:00 04/30/17 17:36 04/30/17 17:36 04/30/17 16:00 04/30/17 17:36 Laboratory Results 04/30/17 03:20 04/30/17 03:20 04/29/17 04/30/17 05/01/17 05:59 05:59 05:59 Intake Total 30 960 250 Output Total 250 400 Balance -220 960 -150 - Physical Exam Constitutional: chronically ill appearing, uncomfortable, unkempt, cachectic Cardiovascular: regular rate and rhythym, no murmur, rub, or gallop, other ( absent pulses dorsalis pedis, faint in bilat pops), No edema Respiratory: reduced air movement (on exp), No expiratory wheeze, No inspiratory crackles, No bronchial breath sounds, No respiratory distress Gastrointestinal: normoactive bowel sounds, soft, non-tender abdomen, no palpable masses Skin: other (diffuse ulcerations bilat LE w/ confluent blanchable erythema, somewhat improved from day prior, necrosis sides of toes) Neurologic: AAOx3, sensation intact bilaterally, No facial droop Psychiatric: not encephalopathic, anxious, flat affect, No agitated ICD10 Worksheet Patient Problems: Problems Problem Status Onset COPD exacerbation Acute Maceration of skin Acute Cellulitis Acute
[2017-05-01] MEDS: IPRATROPIUM/ALBUTEROL 3 ML DEYVIAL IH SCH ×3 (05:04→17:18)
[2017-05-01 07:03] LABS: PLATELET COUNT 262 10^3/uL (150-400)
[2017-05-01] MEDS: predniSONE 20 MG TAB PO SCH (08:02)
[2017-05-01] MEDS: ENOXAPARIN 40 MG/0.4 ML SYR SC SCH (08:02)
[2017-05-01] MEDS: VANCOMYCIN HCL/NORMAL SALINE 250 ML IV SCH ×2 (08:03→17:45)
[2017-05-01] MEDS: FLUCONAZOLE 100 MG TAB PO SCH (08:03)
--- NOTE | 2017-05-01 16:47 | HOSPPROG ---
Hospitalist Progress Note Assessment/Plan: Assessment: 66 year-old male presents with acute foot pain in the setting of necrotic foot wounds, suspected ischemic digits, and possible cellulitis complicated by acute encephalopathy and acute hypoxic respiratory failure Plan: # Necrotic foot wounds and suspected digit ischemia. Likely peripheral arterial disease - encouraged patient to allow vascular studies (CT angio) to help guide tx plan , he has declined - patient only intermittently taking ASA, will order scheduled w/ lipid panel - cont wound care - cont pain control - begin SNF auth process, cont work w/ PT, patient may be able to discharge independently if he does not want SNF placement # Possible cellulitis. Given leukocytosis, erythema, and exposure, will cont tx w/ IV Abx another 24hrs and gauge effect - cont Vanco via PICC - erythema substantially improved today # Acute hypoxic respiratory failure. Evidenced by SpO2 of 76% on room air, objective tachypnea respiratory rate of 34, symptomatic shortness of breath, audible wheezing, visible tachypnea, most likely secondary to acute COPD exacerbation as CXR w/o infiltrate (personally interpreted) -continue on supplemental oxygen, patient does not wear oxygen at baseline, currently requiring 4.5 L -continue treatment for acute COPD exacerbation # Acute COPD exacerbation. Exp wheeze on presentation, pursed lip breathing, improved -D#3/5 pred -placed on scheduled duo nebs, adjust to PRN # Acute encephalopathy. 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 Patient participating more in care, encouraging him, establishing trust -appreciate Behavioral Health Resource nurse assistance -will request formal TLC consultation after the patient is medically cleared -will continue to work with the patient to perform care which will be agreeable to him # Acute metabolic acidosis. Resolved # Acute hyponatremia. Resolved # Thrush. Cont fluconazole 200 # Body lice. Ivermectin started, counseled patient regarding underlying reasoning for lengthy hair, he reports he has been growing it since 1997, and, because of a bad experience with someone who convinced him to cut it then, he will never cut it again -cont to assist w/ daily hygiene Diet. Regular Prophylaxis. High risk patient, Lovenox Code. Full Disposition. Anticipated discharge uncertain, patient remains ill and unable to care for self. High level of medical complexity, high risk of worsening morbidity 2/2 issues outlined above. Subjective: patient aware that his hair has bugs, less pain in legs w/ ambulation Objective: Vital Signs Temp Pulse Resp BP Pulse Ox 36.5 C 77 16 114/53 L 98 05/01/17 08:00 05/01/17 09:29 05/01/17 09:29 05/01/17 09:29 05/01/17 09:29 Laboratory Results 05/01/17 06:30 05/01/17 06:30 04/30/17 05/01/17 05/02/17 05:59 05:59 05:59 Intake Total 960 1095 Output Total 1000 250 Balance 960 95 -250 - Physical Exam Constitutional: no apparent distress, not in pain, chronically ill appearing, uncomfortable, cachectic Cardiovascular: regular rate and rhythym, no murmur, rub, or gallop, No edema Respiratory: reduced air movement (on exp bilat), No expiratory wheeze, No inspiratory crackles, No bronchial breath sounds Gastrointestinal: normoactive bowel sounds, soft, non-tender abdomen, no palpable masses, No distension Skin: other (less erythema RLE, ongoing ulcerations LLE w/ some sloughing, necrotic toes, hyperkeratinosis L heel) Neurologic: AAOx3, sensation intact bilaterally, No weakness Psychiatric: not anxious, thought process linear, flat affect, No agitated ICD10 Worksheet Patient Problems: Problems Problem Status Onset COPD exacerbation Acute Maceration of skin Acute Cellulitis Acute
[2017-05-02] MEDS: IPRATROPIUM/ALBUTEROL 3 ML DEYVIAL IH SCH ×3 (00:26→13:55)
[2017-05-02 05:45] LABS: PLATELET COUNT 266 10^3/uL (150-400)
[2017-05-02] MEDS: predniSONE 20 MG TAB PO SCH (07:50)
[2017-05-02] MEDS: VANCOMYCIN HCL/NORMAL SALINE 250 ML IV SCH ×2 (07:50→18:02)
[2017-05-02] MEDS: FLUCONAZOLE 100 MG TAB PO SCH (07:50)
[2017-05-02] MEDS: ASPIRIN EC 325 MG TAB PO SCH (07:50)
[2017-05-02] MEDS: ENOXAPARIN 40 MG/0.4 ML SYR SC SCH (07:50)
--- NOTE | 2017-05-02 17:41 | HOSPPROG ---
Hospitalist Progress Note Assessment/Plan: Assessment: 66 year-old male ("Lost") presents with acute foot pain in the setting of necrotic foot wounds, suspected ischemic digits from PAD, and possible cellulitis complicated by acute encephalopathy and acute hypoxic respiratory failure Plan: # Necrotic foot wounds and suspected digit ischemia w/ likely peripheral arterial disease, unclear if the pain he is experiencing is 2/2 gravity dependent re-perfusion when he walks, or if it is simply exercised-induced ischemia - patient declined CT angio of LE - counseled patient today regarding the possible benefit of confirming a diagnosis of PAD w/ ABIs, so that we could assuredly start sx-targeted therapy ( i.e. cilostazol) and focus our tx for PAD - LDL at goal < 70 - patient only intermittently taking ASA as outpt, so placed on scheduled ASA, patient amenable - may have a neuropathic element, also has sciatica, rec HS gabapentin - cont wound care - cont pain control - begin SNF auth process, cont work w/ PT, patient may be able to discharge independently if he does not want SNF placement # Possible cellulitis. Given leukocytosis, erythema, and exposure, will cont tx w/ IV Abx another 24hrs and gauge effect - cont Vanco via PICC - appreciate ongoing ID consultation, duration of therapy at ID discretion # Acute hypoxic respiratory failure. Most likely secondary to acute COPD exacerbation, resolved # Acute COPD exacerbation. Exp wheeze on presentation, pursed lip breathing, improved - D#4/5 pred - PRN duonebs # Acute encephalopathy. 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 Patient participating more in care, encouraging him, establishing trust -appreciate Behavioral Health Resource nurse assistance -will continue to work with the patient to perform care which will be agreeable to him # Acute metabolic acidosis. Resolved # Acute hyponatremia. Resolved # Thrush. Cont fluconazole 200 # Body lice. Ivermectin started, counseled patient regarding underlying reasoning for lengthy hair, he reports he has been growing it since 1997, and, because of a bad experience with someone who convinced him to cut it then, he will never cut it again -cont to assist w/ daily hygiene Diet. Regular Prophylaxis. High risk patient, Lovenox Code. Full Disposition. Anticipated discharge uncertain, patient remains ill and unable to care for self. High level of medical complexity, high risk of worsening morbidity 2/2 issues outlined above. Subjective: patient reports ongoing pain in legs when he lowers them Objective: Vital Signs Temp Pulse Resp BP Pulse Ox 36.5 C 76 20 126/60 H 94 05/02/17 15:42 05/02/17 07:56 05/02/17 07:56 05/02/17 15:42 05/02/17 07:56 Laboratory Results 05/02/17 05:07 05/02/17 05:07 05/01/17 05/02/17 05/03/17 05:59 05:59 05:59 Intake Total 1095 1000 Output Total 1000 1650 450 Balance 95 -650 -450 - Physical Exam Constitutional: no apparent distress, chronically ill appearing, uncomfortable, cachectic Cardiovascular: regular rate and rhythym, no murmur, rub, or gallop, other ( absent dorsalis pedis, diminished bilat popliteal), No edema Respiratory: reduced air movement (on exp bilat), No expiratory wheeze, No inspiratory crackles, No bronchial breath sounds, No respiratory distress Gastrointestinal: normoactive bowel sounds, soft, non-tender abdomen, no palpable masses, No distension Skin: other (sloughing bilat LE w/ ulcerations, necrosis on toes, and mild blanchable erythema which has faded from presentation) Neurologic: AAOx3, sensation intact bilaterally, No facial droop Psychiatric: not encephalopathic, anxious, flat affect, No agitated ICD10 Worksheet Patient Problems: Problems Problem Status Onset COPD exacerbation Acute Maceration of skin Acute Cellulitis Acute
--- NOTE | 2017-05-02 18:34 | PCMIDPN ---
Assessment/Plan: Assessment: Bilateral lower extremity cellulitis superimposed on circumstantial ischemic changes to the lower extremities. Wounds appear to be healing. Erythema is significantly decreased. Perhaps we can short course the antibiotic treatment for the secondary soft tissue infection. Plan: 1. Continue IV vancomycin. 2. Follow appearance of lower extremities. Hopefully can limit the duration of antibiotic treatment to 7 days. 05/02/17 18:32 05/02/17 18:32 Subjective: Patient is resting in his hospital bed. He states the leg legs still burn. No fevers or chills. Tolerating vancomycin without issue. Objective: Vancomycin # 3 Vital Signs Temp Pulse Resp BP Pulse Ox 36.5 C 76 20 126/60 H 94 05/02/17 15:42 05/02/17 07:56 05/02/17 07:56 05/02/17 15:42 05/02/17 07:56 Laboratory Results 05/02/17 05:07 05/02/17 05:07 05/01/17 05/02/17 05/03/17 05:59 05:59 05:59 Intake Total 1095 1000 1700 Output Total 1000 1650 450 Balance 95 -650 1250 - Physical Exam General Appearance: WD/WN, alert, no apparent distress, non-toxic Respiratory: lungs clear Cardiac/Chest: regular rate, rhythm Skin: normal color, warm/dry, rash (Ischemic rash bilateral lower extremities left greater than right.), No erythema Neuro/Psych: alert, normal mood/affect ICD10 Worksheet Patient Problems: Problems Problem Status Onset COPD exacerbation Acute Cellulitis Acute Maceration of skin Acute
[2017-05-03] MEDS: GABAPENTIN 100 MG CAP PO SCH ×2 (06:32→20:16)
[2017-05-03] MEDS: VANCOMYCIN HCL/NORMAL SALINE 250 ML IV SCH ×2 (06:40→18:14)
[2017-05-03] MEDS: FLUCONAZOLE 100 MG TAB PO SCH (08:10)
[2017-05-03] MEDS: ENOXAPARIN 40 MG/0.4 ML SYR SC SCH (08:10)
[2017-05-03] MEDS: predniSONE 20 MG TAB PO SCH (08:10)
[2017-05-03] MEDS: ASPIRIN EC 325 MG TAB PO SCH (08:10)
--- NOTE | 2017-05-03 15:05 | HOSPPROG ---
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 Subjective: feels chilly today Objective: Vital Signs Temp Pulse Resp BP Pulse Ox 36.4 C 11 L 18 129/70 H 99 05/03/17 08:00 05/03/17 08:00 05/03/17 08:00 05/03/17 08:00 05/03/17 08:00 Laboratory Results 05/02/17 05:07 05/02/17 05:07 05/02/17 05/03/17 05/04/17 05:59 05:59 05:59 Intake Total 1000 2200 Output Total 1650 950 Balance -650 1250 chart reviewed cxr personally reviewed - Physical Exam Constitutional: unkempt Cardiovascular: regular rate and rhythym, no murmur, rub, or gallop Respiratory: no respiratory distress, no rales or rhonchi Gastrointestinal: soft, non-tender abdomen, no palpable masses ICD10 Worksheet Patient Problems: Problems Problem Status Onset COPD exacerbation Acute Maceration of skin Acute Cellulitis Acute
--- NOTE | 2017-05-03 16:14 | ASMTCMCOM ---
CM Note CM Note Notes: 66 year old male admitted for SOB, COPD exascerbation, LE cellulitis. He has a hx of L5-S1 surgery. Patient is homeless and a smoker. Tx IV ABX. CM to follow for discharge needs. Date Signed: 05/03/2017 04:13 PM Electronically Signed By:Vielka Travis LCSW
[2017-05-03] MEDS ORDERED: IOPAMIDOL (ISOVUE 370) 100 ML BTL IV ONE (19:36)
[2017-05-04] MEDS: VANCOMYCIN HCL/NORMAL SALINE 250 ML IV SCH (05:35)
[2017-05-04 05:51] LABS: PLATELET COUNT 177 10^3/uL (150-400)
[2017-05-04] MEDS: FLUCONAZOLE 100 MG TAB PO SCH (08:15)
[2017-05-04] MEDS: ASPIRIN EC 325 MG TAB PO SCH (08:15)
[2017-05-04] MEDS: ENOXAPARIN 40 MG/0.4 ML SYR SC SCH (08:15)
--- NOTE | 2017-05-04 14:41 | PCMIDPN ---
Assessment/Plan: # Mild B LE cellulitis, portal likely ischemic LE ulcers: erythema completely resolved today --dc vancomycin --call ID for additional questions # LE ulcers: awaiting results of CT angio, patient reports he has "blockages" # COPD: patient reports occasional SOB since admit # Body Lice: s/p ivermectin. No bugs visualized today, agree cure difficult with dreadlocks # leukocytosis: multifactorial, including recent steroid burst for COPD meds vancomycin 1gm IV q12, #5 Subjective: patient without specific c/o getting plenty to eat no diarrhea occasional SOB Objective: Vital Signs Temp Pulse Resp BP Pulse Ox 36.5 C 69 16 132/63 H 99 05/04/17 00:00 05/04/17 08:00 05/04/17 08:00 05/04/17 08:00 05/04/17 08:00 Microbiology 04/28/17 22:45 Blood Culture - Final Blood 04/28/17 22:00 Blood Culture - Final Blood Laboratory Results 05/04/17 05:30 05/02/17 05:07 05/03/17 05/04/17 05/05/17 05:59 05:59 05:59 Intake Total 2200 1870 Output Total 950 1375 Balance 1250 495 - Physical Exam General Appearance: alert, no apparent distress, thin EENT: poor dentition Respiratory: other (decreased bs throughout), No accessory muscle use Cardiac/Chest: regular rate, rhythm, other (hyperdynamic precordium) Extremities: other (skin cracking R>L with multiple coalesced superficial ulcers with irregular borders, no purulence, no erythema, no warmth), No pedal edema Neuro/Psych: alert, depressed affect - Time Spent With Patient Time Spent with Patient: greater than 25 minutes Time Spent with Patient: Greater than 25 minutes spent on this patients care, greater than 50% of time spent counseling, educating, and coordinating care regarding the above mentioned plan. ICD10 Worksheet Patient Problems: Problems Problem Status Onset COPD exacerbation Acute Cellulitis Acute Maceration of skin Acute
--- NOTE | 2017-05-04 15:01 | HOSPPROG ---
Hospitalist Progress Note Assessment/Plan: # LLE cellulitis - vanc per ID # peripheral artery disease * Discussed with Interventional Radiology. He has bilateral common iliac artery stenosis that is amenable to stenting * Discussed intervention with patient. 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 Subjective: No new complaints Objective: Vital Signs Temp Pulse Resp BP Pulse Ox 36.5 C 69 16 132/63 H 99 05/04/17 00:00 05/04/17 08:00 05/04/17 08:00 05/04/17 08:00 05/04/17 08:00 Microbiology 04/28/17 22:45 Blood Culture - Final Blood 04/28/17 22:00 Blood Culture - Final Blood Laboratory Results 05/04/17 05:30 05/02/17 05:07 05/03/17 05/04/17 05/05/17 05:59 05:59 05:59 Intake Total 2200 1870 Output Total 950 1375 Balance 1250 495 - Time Spent With Patient Time Spent with Patient: greater than 35 minutes (Counseled regarding iliac artery blockages and stenting procedure) Time Spent with Patient: Greater than 35 minutes spent on this patients care, greater than 50% of time spent counseling, educating, and coordinating care regarding the above mentioned plan. - Physical Exam Constitutional: no apparent distress, appears nourished, not in pain Musculoskeletal: other (Multiple ulcerations bilateral lower extremities with improving erythema) Neurologic: AAOx3 ICD10 Worksheet Patient Problems: Problems Problem Status Onset COPD exacerbation Acute Cellulitis Acute Maceration of skin Acute
[2017-05-04 16:29] LABS: INR 1.21 (0.83-1.16); PROTIME(PATIENT) 15.5 SEC (12.0-15.0)
[2017-05-04] MEDS ORDERED: VANCOMYCIN 1 GM in D5W 250 ML IV SCH (18:00)
[2017-05-04] MEDS: GABAPENTIN 100 MG CAP PO SCH (21:41)
[2017-05-05] MEDS: ENOXAPARIN 40 MG/0.4 ML SYR SC SCH (11:13)
[2017-05-05] MEDS: FLUCONAZOLE 100 MG TAB PO SCH (11:13)
[2017-05-05] MEDS: ASPIRIN EC 325 MG TAB PO SCH (11:13)
--- NOTE | 2017-05-05 12:21 | ASMTCMCOM ---
CM Note CM Note Notes: Patient is not eligible to apply for Medicaid but has to apply for Medicare due to his age of 66.Once he has his Medicare, patient can then apply for Medicaid as secondary. Patient is not able to go through the application process alone but needs an advocate to help him. We will contact Medicare to see if they have case workers to help patient's unable to do this alone. CM will follow. Date Signed: 05/05/2017 12:21 PM Electronically Signed By:Macie Wharton LCSW
--- NOTE | 2017-05-05 15:45 | HOSPPROG ---
Hospitalist Progress Note Assessment/Plan: # LLE cellulitis - vanc per ID # peripheral artery disease * Discussed with Interventional Radiology. He has bilateral common iliac artery stenosis that is amenable to stenting * Discussed intervention with patient. Both interventional Radiology and myself has had multiple discussions with the patient trying to allay his fears. * I think he is still open to it and I have told him that he can take another couple days to think about a with possible scheduling on Wednesday. 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 He is still open to it but needs more time Objective: Vital Signs Temp Pulse Resp BP Pulse Ox 36.6 C 75 18 127/62 H 98 05/05/17 00:00 05/05/17 08:00 05/05/17 08:00 05/05/17 08:00 05/05/17 08:00 Laboratory Results 05/04/17 05:30 05/02/17 05:07 05/04/17 05/05/17 05/06/17 05:59 05:59 05:59 Intake Total 1870 1400 Output Total 1375 2475 Balance 495 -1075 PT 15.5 SEC (12.0-15.0) H 05/04/17 16:10 INR 1.21 (0.83-1.16) H 05/04/17 16:10 - Time Spent With Patient Time Spent with Patient: greater than 35 minutes (Discussing the risk benefit ratio of proceeding with angioplasty) Time Spent with Patient: Greater than 35 minutes spent on this patients care, greater than 50% of time spent counseling, educating, and coordinating care regarding the above mentioned plan. - Physical Exam Constitutional: no apparent distress Musculoskeletal: other (Ischemic looking lower extremities) Psychiatric: interacting appropriately ICD10 Worksheet Patient Problems: Problems Problem Status Onset COPD exacerbation Acute Cellulitis Acute Maceration of skin Acute
--- NOTE | 2017-05-05 16:17 | ASMTCMCOM ---
CM Note CM Note Notes: CM left a msg with aging and disability resource line to inquire if an advocate can come assist pt in applying for Medicare. CM left a msg for Dio (P#: [phone]) at [facility]. CM to follow. Date Signed: 05/05/2017 04:17 PM Electronically Signed By:NICKY Chaudhary
[2017-05-05] MEDS: GABAPENTIN 100 MG CAP PO SCH (21:36)
[2017-05-06] MEDS: ENOXAPARIN 40 MG/0.4 ML SYR SC SCH (09:10)
[2017-05-06] MEDS: FLUCONAZOLE 100 MG TAB PO SCH (09:10)
[2017-05-06] MEDS: ASPIRIN EC 325 MG TAB PO SCH (09:10)
--- NOTE | 2017-05-06 18:21 | HOSPPROG ---
Hospitalist Progress Note Assessment/Plan: # LLE cellulitis - vanc per ID # peripheral artery disease * Discussed with Interventional Radiology. He has bilateral common iliac artery stenosis that is amenable to stenting * Discussed intervention with patient. Both interventional Radiology and myself has had multiple discussions with the patient trying to allay his fears. * I think he is may be still open to it. Will try again tomorrow. Pretty big dispo problem so we have time to work on it. 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 Subjective: still thinking about angioplasty Objective: Vital Signs Temp Pulse Resp BP Pulse Ox 37 C 74 20 118/46 L 96 05/06/17 08:00 05/06/17 08:00 05/06/17 08:00 05/06/17 08:00 05/06/17 08:00 Laboratory Results 05/04/17 05:30 05/02/17 05:07 05/05/17 05/06/17 05/07/17 05:59 05:59 05:59 Intake Total 1400 1000 Output Total 2475 4100 Balance -1075 -3100 PT 15.5 SEC (12.0-15.0) H 05/04/17 16:10 INR 1.21 (0.83-1.16) H 05/04/17 16:10 - Physical Exam Constitutional: no apparent distress, appears nourished, not in pain Musculoskeletal: other (ischemic legs unchanged) Psychiatric: flat affect ICD10 Worksheet Patient Problems: Problems Problem Status Onset COPD exacerbation Acute Cellulitis Acute Maceration of skin Acute
[2017-05-07] MEDS: GABAPENTIN 100 MG CAP PO SCH ×2 (01:13→21:09)
[2017-05-07] MEDS: ASPIRIN EC 325 MG TAB PO SCH (08:01)
[2017-05-07] MEDS: ENOXAPARIN 40 MG/0.4 ML SYR SC SCH (08:01)
[2017-05-07] MEDS: FLUCONAZOLE 100 MG TAB PO SCH (08:01)
[2017-05-07] MEDS: IVERMECTIN 3 MG TAB PO SCH (08:01)
--- NOTE | 2017-05-07 12:32 | ASMTCMCOM ---
CM Note CM Note Notes: I went to speak with patient (please address him by the name 'Lost') today about discharge planning and applying for health insurance. Yesterday, a gentleman named Dio Davis from the [facility] ([phone])came to speak with patient about applying for Medicare but was not able to start the process. Dio told me that I would have to call Medicare to assist patient; I did call [phone] and gave patient information - the title insurance sales representative said that they would call patient here at the hospital. I went to speak with patient about this, encouraged him to answer the phone if it rang, and reiterated the importance of getting signed up for Medicare (of note, he is not interested in SSI). Per Char Staley's recommendation for patient's personality type, I initiated a gentle conversation about patient's expectations upon discharge. He is quite realistic about his situation and realizes that returning to the streets[place]forest in his current condition is not possible. We talked about going to SNF rehab and the hurdles present (lack of insurance at this time, supposed lice infestation) in that plan. The patient expressed that he has had a hard time believing that it's simply lack of blood flow that's preventing his wound healing, which is why he was hesitant to commit to the stenting procedure that was recommended. We talked about how there are likely other factors contributing to his non-healing ulcers (such as poor hygiene and exposure), but that without proper blood supply, there is little chance of meaningful recovery. I asked patient if he wanted to continue living, and he expressed that he is not ready to yet. Given this, he said he's willing to undergo the procedure. Dr Rodriguez, hospitalist, came into the room shortly after our conversation, and patient again agreed to this course of treatment. Dr Rodriguez will consult with IR. Case Management will continue to work with patient on discharge planning and, most importantly, keep track of the status of his Medicare application. I have a feeling we will need to follow up with the Medicare office daily to ensure that they have contacted patient. Again, that number is [phone] Date Signed: 05/07/2017 12:31 PM Electronically Signed By:Leticia Ramos RN
--- NOTE | 2017-05-07 14:15 | HOSPPROG ---
Hospitalist Progress Note Assessment/Plan: New patient encounter # LLE cellulitis - s/p Vanco # peripheral artery disease * Discussed with Interventional Radiology. He has bilateral common iliac artery stenosis that is amenable to stenting * Discussed intervention with patient. Both interventional Radiology and myself has had multiple discussions with the patient trying to allay his fears. * He is now agreeable to stenting. 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 No CP or SOB. No N/V Objective: Vital Signs Temp Pulse Resp BP Pulse Ox 36.5 C 71 20 102/44 L 99 05/07/17 08:00 05/07/17 08:00 05/07/17 08:00 05/07/17 08:00 05/07/17 08:00 Laboratory Results 05/04/17 05:30 05/02/17 05:07 05/06/17 05/07/17 05/08/17 05:59 05:59 05:59 Intake Total 1000 3800 Output Total 4100 3000 Balance -3100 800 PT 15.5 SEC (12.0-15.0) H 05/04/17 16:10 INR 1.21 (0.83-1.16) H 05/04/17 16:10 - Physical Exam Constitutional: chronically ill appearing Eyes: PERRL Ears, Nose, Mouth, Throat: moist mucous membranes, hearing normal Cardiovascular: regular rate and rhythym, No edema Respiratory: reduced air movement Gastrointestinal: normoactive bowel sounds, soft, non-tender abdomen Skin: warm Psychiatric: interacting appropriately Lymph, Heme, Immunologic: No petechiae ICD10 Worksheet Patient Problems: Problems Problem Status Onset COPD exacerbation Acute Cellulitis Acute Maceration of skin Acute
[2017-05-08] MEDS: ASPIRIN EC 325 MG TAB PO SCH (08:01)
[2017-05-08] MEDS: ENOXAPARIN 40 MG/0.4 ML SYR SC SCH (08:02)
--- NOTE | 2017-05-08 12:28 | HOSPPROG ---
Hospitalist Progress Note Assessment/Plan: # LLE cellulitis - s/p Vanco # peripheral artery disease * Discussed with Interventional Radiology. He has bilateral common iliac artery stenosis that is amenable to stenting * Discussed intervention with patient. Both interventional Radiology and myself has had multiple discussions with the patient trying to allay his fears. * He is now agreeable to stenting. 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 Subjective: no new complaints Objective: Vital Signs Temp Pulse Resp BP Pulse Ox 36.6 C 71 14 116/61 97 05/08/17 08:00 05/08/17 08:00 05/08/17 08:00 05/08/17 08:00 05/08/17 08:00 Laboratory Results 05/04/17 05:30 05/02/17 05:07 05/07/17 05/08/17 05/09/17 05:59 05:59 05:59 Intake Total 3800 Output Total 3000 400 Balance 800 -400 PT 15.5 SEC (12.0-15.0) H 05/04/17 16:10 INR 1.21 (0.83-1.16) H 05/04/17 16:10 - Physical Exam Constitutional: no apparent distress Eyes: PERRL Ears, Nose, Mouth, Throat: moist mucous membranes Cardiovascular: regular rate and rhythym Respiratory: no respiratory distress Gastrointestinal: normoactive bowel sounds Skin: warm Psychiatric: interacting appropriately, not anxious, No encephalopathic ICD10 Worksheet Patient Problems: Problems Problem Status Onset COPD exacerbation Acute Cellulitis Acute Maceration of skin Acute
[2017-05-08] MEDS: GABAPENTIN 100 MG CAP PO SCH (21:59)
[2017-05-09] MEDS: ASPIRIN EC 325 MG TAB PO SCH (09:30)
[2017-05-09] MEDS: ENOXAPARIN 40 MG/0.4 ML SYR SC SCH (09:30)
--- NOTE | 2017-05-09 11:49 | HOSPPROG ---
Hospitalist Progress Note Assessment/Plan: # LLE cellulitis - s/p Vanco # peripheral artery disease * Discussed with Interventional Radiology. He has bilateral common iliac artery stenosis that is amenable to stenting * Discussed intervention with patient. Both interventional Radiology and myself has had multiple discussions with the patient trying to allay his fears. * He is now agreeable to stenting. 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 NPO tonight Subjective: No O/N events. No new complaints. Objective: Vital Signs Temp Pulse Resp BP Pulse Ox 36.6 C 77 16 92/55 L 92 05/09/17 08:00 05/09/17 08:00 05/09/17 08:00 05/09/17 08:00 05/09/17 08:00 Laboratory Results 05/04/17 05:30 05/02/17 05:07 05/08/17 05/09/17 05/10/17 05:59 05:59 05:59 Intake Total 2900 Output Total 400 1450 Balance -400 1450 PT 15.5 SEC (12.0-15.0) H 05/04/17 16:10 INR 1.21 (0.83-1.16) H 05/04/17 16:10 - Physical Exam Constitutional: no apparent distress Eyes: PERRL, EOMI Ears, Nose, Mouth, Throat: moist mucous membranes, hearing normal Cardiovascular: No edema Respiratory: no respiratory distress Gastrointestinal: No distension Neurologic: AAOx3 Psychiatric: interacting appropriately, not anxious, not encephalopathic ICD10 Worksheet Patient Problems: Problems Problem Status Onset COPD exacerbation Acute Cellulitis Acute Maceration of skin Acute
[2017-05-09] MEDS: GABAPENTIN 100 MG CAP PO SCH (20:58)
[2017-05-10 05:53] LABS: PLATELET COUNT 210 10^3/uL (150-400)
[2017-05-10 05:57] LABS: INR 0.95 (0.83-1.16); PROTIME(PATIENT) 12.9 SEC (12.0-15.0)
[2017-05-10] MEDS: ASPIRIN EC 325 MG TAB PO SCH (09:01)
[2017-05-10] MEDS ORDERED: NALOXONE HCL 0.4 MG/ML INJ IVP PRN (16:14)
[2017-05-10] MEDS ORDERED: HEPARIN 10,000 UNIT/10 ML MDV (1,000 UNIT/ML) IVP PRN (16:14)
[2017-05-10] MEDS ORDERED: PROTAMINE SULFATE 50 MG/5 ML VIAL IVP PRN (16:14)
[2017-05-10] MEDS ORDERED: FLUMAZENIL 0.5 MG/5 ML MDV IVP PRN (16:14)
[2017-05-10] MEDS ORDERED: MIDAZOLAM 2 MG/2 ML VIAL IVP PRN (16:14)
[2017-05-10] MEDS ORDERED: ALTEPLASE 2 MG VIAL IVP PRN (16:14)
[2017-05-10] MEDS ORDERED: MEPERIDINE 25 MG/ML SYR IVP PRN (16:14)
[2017-05-10] MEDS ORDERED: fentaNYL 100 MCG/2 ML INJ IVP PRN (16:14)
[2017-05-10] MEDS ORDERED: GLUCAGON HCL 1 MG VIAL IVP PRN (16:14)
[2017-05-10] MEDS ORDERED: fentaNYL 100 MCG/2 ML INJ ONE (16:15)
[2017-05-10] MEDS ORDERED: FLUMAZENIL 0.5 MG/5 ML MDV IVP ONE (16:15)
[2017-05-10] MEDS ORDERED: MIDAZOLAM 2 MG/2 ML VIAL ONE (16:15)
[2017-05-10] MEDS ORDERED: NALOXONE HCL 0.4 MG/ML INJ ONE (16:15)
[2017-05-10] MEDS ORDERED: NS 1,000 ML IV SCH (16:15)
--- NOTE | 2017-05-10 16:19 | PDPROPOC ---
Sedation Plan of Care Sedation Plan of Care: vital signs stable, mental status noted, patient educated of risks, benefits, alternatives, patient can tolerate sedation ASA Classification: ASA 3 Planned drugs: fentanyl, midazolam Mallampati Score: Class 2 Mallampati Reference Image: Patient passed 3-3-2 rule?: Yes
[2017-05-10] MEDS ORDERED: IOPAMIDOL (ISOVUE-300) 100 ML BTL ONE (16:37)
--- NOTE | 2017-05-10 17:15 | ASMTCMCOM ---
CM Note CM Note Notes: Patient had a stenting of bilateral common iliac artery. CM to follow. Date Signed: 05/10/2017 05:15 PM Electronically Signed By:Vielka Travis LCSW
[2017-05-10] MEDS ORDERED: CLOPIDOGREL BISULFATE 75 MG TAB PO ONE (18:37)
--- NOTE | 2017-05-10 18:39 | PDRADPN ---
Radiology Procedure Note Date of Procedure: 05/10/17 Radiologist: Franci Rachel Anesthesia: IV Sedation (FENTANYL AND VERSED) Pre-op Diagnosis: LEG CELLULISTIS, PVD Post-op Diagnosis: same Indication: non-healing cellulitis Procedure: bilateral iliac angiogram with stents Finding(s): resolution of bilateral occluded JEREMIAS with stenting. now bounding femoral pulses. Inf/Abcess present in the surg proc area at time of surgery?: No Complications: none
--- NOTE | 2017-05-10 20:51 | HOSPPROG ---
Hospitalist Progress Note Assessment/Plan: * PVD s/p bilateral common iliac artery stents -ASA/Plavix, lipitor * LE cellulitis s/p IV vanco * LE ischemic ulcers -wound care * Body lice -ivermectin * COPD exacerbation - ongoing tobacco -improved Subjective: No complaints, to IR today Objective: Vital Signs Temp Pulse Resp BP Pulse Ox 36.7 C 68 17 131/75 H 100 05/10/17 15:40 05/10/17 20:01 05/10/17 20:01 05/10/17 20:01 05/10/17 20:01 Laboratory Results 05/10/17 05:40 05/10/17 05:40 05/09/17 05/10/17 05/11/17 05:59 05:59 05:59 Intake Total 2900 1000 680 Output Total 1450 1050 1200 Balance 1450 -50 -520 PT 12.9 SEC (12.0-15.0) 05/10/17 05:40 INR 0.95 (0.83-1.16) 05/10/17 05:40 pelvic arteriogram reviewed - bilateral JEREMIAS stenosis s/p stent CXR viewed, my personal interpretation is - COPD - Physical Exam Constitutional: no apparent distress, appears nourished, not in pain Cardiovascular: regular rate and rhythym, no murmur, rub, or gallop Respiratory: no respiratory distress, no rales or rhonchi, clear to auscultation Gastrointestinal: normoactive bowel sounds, soft, non-tender abdomen, no palpable masses Skin: no rashes or abrasions, no fluctuance, no induration Neurologic: AAOx3, sensation intact bilaterally Psychiatric: interacting appropriately, not anxious, not encephalopathic, thought process linear ICD10 Worksheet Patient Problems: Problems Problem Status Onset COPD exacerbation Acute Cellulitis Acute Maceration of skin Acute
[2017-05-10] MEDS: GABAPENTIN 100 MG CAP PO SCH (21:03)
[2017-05-11 05:39] LABS: PLATELET COUNT 183 10^3/uL (150-400)
--- NOTE | 2017-05-11 09:51 | SOAPPROG ---
LUAN Progress Note Assessment/Plan: Assessment: Good pulses after bilateral iliac stent placement. Plan: Patient needs to be on 3 months of plavix once discharged, then can just stop. Otherwise he's at risk for stent thrombosis and showering of acute clot to LEs, which would be worse than iliac occlusions. This was discussed in detail with patient prior to procedure and patient expressed willingness to take Plavix. 05/11/17 09:49 Objective: Vital Signs Temp Pulse Resp BP Pulse Ox 36.4 C 76 24 H 121/57 H 97 05/11/17 00:00 05/11/17 01:23 05/11/17 01:23 05/11/17 01:23 05/11/17 01:23 Laboratory Results 05/11/17 05:20 05/11/17 05:20 05/10/17 05/11/17 05/12/17 05:59 05:59 05:59 Intake Total 1000 1750 Output Total 1050 2225 Balance -50 -475 PT 12.9 SEC (12.0-15.0) 05/10/17 05:40 INR 0.95 (0.83-1.16) 05/10/17 05:40 ICD10 Worksheet Patient Problems: Problems Problem Status Onset COPD exacerbation Acute Cellulitis Acute Maceration of skin Acute
[2017-05-11] MEDS: ATORVASTATIN CALCIUM 40 MG TAB PO SCH (10:34)
[2017-05-11] MEDS: ASPIRIN EC 325 MG TAB PO SCH (10:34)
[2017-05-11] MEDS: ENOXAPARIN 40 MG/0.4 ML SYR SC SCH (10:35)
[2017-05-11] MEDS: CLOPIDOGREL BISULFATE 75 MG TAB PO SCH (10:35)
--- NOTE | 2017-05-11 14:34 | ASMTCMCOM ---
CM Note CM Note Notes: Spoke to patient about applying for Medicare. He states that someone was to call Wednesday but he didn't hear from anyone. Left message for Dio [facility] [phone]. Contacted [employer] [phone] and they report that patient's appt is June 04 at 11:15AM or he could apply on-line. Part A would be retro active as of November 2016, Part B would not go into affect until October 2017. He will need to apply for Medicaid in order to be admitted into a SNF at this time. Given his isolation for bed bugs there won't be any SNFs that could offer isolation. Patient's hair would need to be cut and his body treated before he would be considered. Talking with patient, I didn't get the impression that he would go to a SNF. He prefers the outdoors rather than the group home. Date Signed: 05/11/2017 02:34 PM Electronically Signed By:Vielka Travis LCSW
--- NOTE | 2017-05-11 17:34 | ASMTCMCOM ---
CM Note CM Note Notes: Dio from [facility] will find staff to come an assist patient with Medicare application. They will bring their computer. Patient needs to apply for Medicare before he can apply for Medicaid. Not certain if patient is willing to go to SNF nor if he will stay 30 days. Date Signed: 05/11/2017 05:33 PM Electronically Signed By:Vielka Travis LCSW
[2017-05-11] MEDS ORDERED: GABAPENTIN 100 MG CAP PO SCH (19:47)
--- NOTE | 2017-05-11 19:48 | HOSPPROG ---
Hospitalist Progress Note Assessment/Plan: * PVD s/p bilateral common iliac artery stents -ASA/Plavix, lipitor -per Dr. Rachel - must take Plavix for 3 months then stop * LE cellulitis s/p IV vanco * LE ischemic ulcers -wound care * Body lice -ivermectin * COPD exacerbation - ongoing tobacco -improved * Schizoid personality disorder Subjective: NO new complaints. Objective: Vital Signs Temp Pulse Resp BP Pulse Ox 36.4 C 82 16 113/52 L 91 L 05/11/17 18:00 05/11/17 18:00 05/11/17 18:00 05/11/17 18:00 05/11/17 18:00 Laboratory Results 05/11/17 05:20 05/11/17 05:20 05/10/17 05/11/17 05/12/17 05:59 05:59 05:59 Intake Total 1000 1750 600 Output Total 1050 2225 800 Balance -50 -475 -200 PT 12.9 SEC (12.0-15.0) 05/10/17 05:40 INR 0.95 (0.83-1.16) 05/10/17 05:40 - Physical Exam Constitutional: no apparent distress, appears nourished, not in pain Cardiovascular: regular rate and rhythym, no murmur, rub, or gallop Respiratory: no respiratory distress, no rales or rhonchi, clear to auscultation Gastrointestinal: normoactive bowel sounds, soft, non-tender abdomen, no palpable masses Skin: no rashes or abrasions, no fluctuance, no induration Neurologic: AAOx3, sensation intact bilaterally Psychiatric: interacting appropriately, not anxious, not encephalopathic, thought process linear ICD10 Worksheet Patient Problems: Problems Problem Status Onset COPD exacerbation Acute Cellulitis Acute Maceration of skin Acute
[2017-05-11] MEDS: GABAPENTIN 300 MG CAP PO SCH (21:51)
[2017-05-12] MEDS: ENOXAPARIN 40 MG/0.4 ML SYR SC SCH (08:23)
[2017-05-12] MEDS: ASPIRIN EC 325 MG TAB PO SCH (08:23)
[2017-05-12] MEDS: CLOPIDOGREL BISULFATE 75 MG TAB PO SCH (08:23)
[2017-05-12] MEDS: ATORVASTATIN CALCIUM 40 MG TAB PO SCH (08:23)
--- NOTE | 2017-05-12 14:09 | ASMTCMCOM ---
CM Note CM Note Notes: I spoke with Dio Davis from the [facility]. He has referred this case to Medicare counselor Lon Scales ([phone]). Per Dio, there is more to the process than a simple online application. He says that Lon is trying to figure out how to make an exemption for this patient. I called her and left a message. Per hospitalist, patient is not ready for discharge. Furthermore, we need to clarify the lice/bed bugs/fleas situation. It seems that he has been treated and may not actually be infested. Removing the precautions would certainly ease the care of this patient. Dr Coley will consult with ID to clarify whether patient actually has active infestations or not. Current CM Discharge plan: TBD Date Signed: 05/12/2017 02:08 PM Electronically Signed By:Leticia Ramos RN
--- NOTE | 2017-05-12 15:49 | ASMTCMCOM ---
CM Note CM Note Notes: I received a call from Lon Scales, Medicare counselor, who tried to explain to me the challenges of getting this patient enrolled in Medicare. Per Lon, the patient's problems stem from the fact that he did not enroll before age 66 and therefore missed his window. He can now apply during the "open enrollment" period until June, but he has to go to the [employer] office. According to Lon, [facility] has some of the most strict confidentiality rules of any agency and it is nearly impossible to do any of this without the patient being present. Given the patient's current - and past - circumstances, I wonder if this is actually realistic. There is also a monthly premium associated with Medicare, which means that patient will also need Medicaid since he is indigent. Lon will continue to pursue options for this case, and she seems to be very considerate of patient's situation. She recommended that we reach out to the [facility] or [facility] to see if they have any experience in helping clients navigate this cumbersome system. I will pass that on to tomorrow's Plate [employer]. Current CM Discharge plan: TBD Date Signed: 05/12/2017 03:49 PM Electronically Signed By:Leticia Ramos RN
[2017-05-12] MEDS: GABAPENTIN 300 MG CAP PO SCH (19:29)
--- NOTE | 2017-05-12 20:12 | HOSPPROG ---
Hospitalist Progress Note Assessment/Plan: * PVD s/p bilateral common iliac artery stents -ASA/Plavix, lipitor -per Dr. Rachel - must take Plavix for 3 months then stop * LE cellulitis s/p IV vanco * LE ischemic ulcers -wound care * Body lice -s/p ivermectin -ok to DC isolation - d/w Dr. Valdez * COPD exacerbation - ongoing tobacco -improved * Schizoid personality disorder Subjective: No complaints. Objective: Vital Signs Temp Pulse Resp BP Pulse Ox 36.4 C 78 26 H 125/62 H 95 05/12/17 16:00 05/12/17 16:00 05/12/17 16:00 05/12/17 16:00 05/12/17 16:00 Laboratory Results 05/11/17 05:20 05/11/17 05:20 05/11/17 05/12/17 05/13/17 05:59 05:59 05:59 Intake Total 1750 850 Output Total 2225 1350 400 Balance -475 -500 -400 PT 12.9 SEC (12.0-15.0) 05/10/17 05:40 INR 0.95 (0.83-1.16) 05/10/17 05:40 - Physical Exam Constitutional: no apparent distress, appears nourished, not in pain Cardiovascular: regular rate and rhythym, no murmur, rub, or gallop Respiratory: no respiratory distress, no rales or rhonchi, clear to auscultation Gastrointestinal: normoactive bowel sounds, soft, non-tender abdomen, no palpable masses Skin: other (LE wounds stable, no surrouding erythema) Neurologic: AAOx3, sensation intact bilaterally Psychiatric: interacting appropriately, not anxious, not encephalopathic, thought process linear ICD10 Worksheet Patient Problems: Problems Problem Status Onset COPD exacerbation Acute Cellulitis Acute Maceration of skin Acute
[2017-05-13] MEDS: ATORVASTATIN CALCIUM 40 MG TAB PO SCH (08:37)
[2017-05-13] MEDS: CLOPIDOGREL BISULFATE 75 MG TAB PO SCH (08:37)
[2017-05-13] MEDS: ASPIRIN EC 325 MG TAB PO SCH (08:37)
[2017-05-13] MEDS: ENOXAPARIN 40 MG/0.4 ML SYR SC SCH (08:37)
--- NOTE | 2017-05-13 18:34 | HOSPPROG ---
Hospitalist Progress Note Assessment/Plan: * PVD s/p bilateral common iliac artery stents -ASA/Plavix, lipitor -per Dr. Rachel - must take Plavix for 3 months then stop * LE cellulitis s/p IV vanco * LE ischemic ulcers -wound care * Body lice -s/p ivermectin -ok to DC isolation - d/w Dr. Valdez * COPD exacerbation - ongoing tobacco -improved * Schizoid personality disorder Subjective: legs hurting a little more since stents, refuses pain meds Objective: Vital Signs Temp Pulse Resp BP Pulse Ox 36.4 C 89 20 136/64 H 93 05/13/17 16:00 05/13/17 16:00 05/13/17 16:00 05/13/17 16:00 05/13/17 16:00 Laboratory Results 05/11/17 05:20 05/11/17 05:20 05/12/17 05/13/17 05/14/17 05:59 05:59 05:59 Intake Total 850 250 Output Total 1350 1200 1150 Balance -500 -950 -1150 PT 12.9 SEC (12.0-15.0) 05/10/17 05:40 INR 0.95 (0.83-1.16) 05/10/17 05:40 - Physical Exam Constitutional: no apparent distress, appears nourished, not in pain Cardiovascular: regular rate and rhythym, no murmur, rub, or gallop Respiratory: no respiratory distress, no rales or rhonchi, clear to auscultation Gastrointestinal: normoactive bowel sounds, soft, non-tender abdomen, no palpable masses Skin: other (LE ulcerations, dry, crusted, no acute infection or drainage) Neurologic: AAOx3, sensation intact bilaterally ICD10 Worksheet Patient Problems: Problems Problem Status Onset COPD exacerbation Acute Cellulitis Acute Maceration of skin Acute
[2017-05-13] MEDS: GABAPENTIN 300 MG CAP PO SCH (19:46)
[2017-05-14] MEDS ORDERED: ATORVASTATIN CALCIUM 40 MG TAB PO SCH
[2017-05-14] MEDS ORDERED: CLOPIDOGREL BISULFATE 75 MG TAB PO SCH
[2017-05-14 04:33] LABS: PLATELET COUNT 220 10^3/uL (150-400)
[2017-05-14] MEDS: ENOXAPARIN 40 MG/0.4 ML SYR SC SCH (08:13)
[2017-05-14] MEDS: ATORVASTATIN CALCIUM 40 MG TAB PO SCH (08:15)
[2017-05-14] MEDS: ASPIRIN EC 325 MG TAB PO SCH (08:15)
[2017-05-14] MEDS: CLOPIDOGREL BISULFATE 75 MG TAB PO SCH (08:15)
--- NOTE | 2017-05-14 16:05 | HOSPPROG ---
Hospitalist Progress Note Assessment/Plan: DIAGNOSES: * PVD with severe ischemia s/p bilateral common iliac artery stents, now with bilateral palpable pulses in feet -ASA/Plavix, lipitor -per Dr. Rachel - must take Plavix for 3 months then stop * LE cellulitis s/p IV vanco * LE ischemic ulcers -ongoing wound care * Body lice -s/p ivermectin with no sign of recurrence, uncertain if they were truly present to begin with -ok to DC isolation - d/w Dr. Valdez * COPD exacerbation - ongoing tobacco -improved * Schizoid personality disorder Spent a long time working with the patient and the caser up today on disposition. At this point essentially he is stable for discharge from hospital but will need ongoing outpatient wound care, as well as arranging to get outpatient medications including Plavix and Lipitor. The patient is in agreement with all this. I am hoping to getting set up so that we can discharge him tomorrow. We do have an appointment set up for him with the outpatient wound care clinic early next week and an appointment on Wednesday 3 days from now at [facility]. PLANS: -continue supportive care and wound care here at this time -will get prescription sent to pharmacy to get approval for enough medicine to get him by until [facility] -appointments have been made for not early next week at [facility] and at the outpatient wound care center SUBJECTIVE: Feels well now with no pain no shortness of breath no nausea, eating well Remains weak but is walking well with a walker and does transfers independently OBJECTIVE Vitals reviewed: [employer], my review: Exam: alert oriented relaxed skin: I did examine the patient with wound care nurse at the bedside today. All of his wounds show no evidence of infection or significant drainage, some of them need significant debridement by wound dressing changes. There is no evidence of any necrosis at this time resps not labored lungs clear BSs heart regular abd soft nondistended nontender, bowel sounds present limbs warm, no edema iv site ok Objective: Vital Signs Temp Pulse Resp BP Pulse Ox 36.6 C 71 16 113/63 95 05/14/17 15:30 05/14/17 15:30 05/14/17 15:30 05/14/17 15:30 05/14/17 15:30 Laboratory Results 05/14/17 04:25 05/14/17 04:25 05/13/17 05/14/17 05/15/17 06:59 06:59 06:59 Intake Total 250 218 Output Total 1200 5375 700 Balance -950 -2207 -700 PT 12.9 SEC (12.0-15.0) 05/10/17 05:40 INR 0.95 (0.83-1.16) 05/10/17 05:40 - Time Spent With Patient Time Spent with Patient: greater than 35 minutes Time Spent with Patient: Greater than 35 minutes spent on this patients care, greater than 50% of time spent counseling, educating, and coordinating care regarding the above mentioned plan. ICD10 Worksheet Patient Problems: Problems Problem Status Onset COPD exacerbation Acute Cellulitis Acute Maceration of skin Acute
--- NOTE | 2017-05-14 17:02 | ASMTCMCOM ---
CM Note CM Note Notes: CM spoke w/ Dr. Teague and Chanell, RN regarding d/c POC. Anticipates d/c for tomorrow. CM scheduled pt appointment w/ [facility] for 05/17/17 @ 9:45AM and scheduled an appointment w/ [facility] outpatient wound clinic for 05/19/17 @ 11AM. [facility] is mapping medications until pt can get to [facility]. CM provided pt w/ [facility] outpatient wound clinic brochure and a total of 4 bus passes approved by Mini, accountant manager. CM will need to help pt w/ transportation home. CM is able to provide a WC at time of d/c. CM available for changes. Plan: Independent w/ outpatient follow up Date Signed: 05/14/2017 05:02 PM Electronically Signed By:NICKY Chaudhary
--- NOTE | 2017-05-14 17:06 | WOCRNPDOC ---
WOCRN Advanced Assessment Note - Skin Integrity Problem, Advanced Assess Bilateral Lower Leg Dressing Type: Open to Air Exudate Color: Brown Exudate Characteristic(s): Dried Integumentary Issue Intervention: Dressing Applied, Lotion/Cream Applied Gypsy Wound Tissue: Blanching, Erythema, Denuded, Thin, Dry, Hair Loss, Painful/ Tender Ygpsy Wound Swelling: Mild Wound Bed Color: Black, Brown Wound Bed Constitution: Red/Blackfoot - Non Granular Tissue, Scab, Stable Eschar Site Odor: None Site Measurement - Head-to-Toe Length X Width X Depth (cm): see comments Skin Integrity Problem Comment: Patient w/ PAD s/p stents w/ extensive wounds to bilateral lower legs. Prior to stent, no palpable DP pulses bilaterally, and stable eschar scattered throughout LE wounds. Post stent, pulses are now 2+ bilaterally. Left leg has a large scab comprised of dried blood and stable eschar on the anterior aspect [id number]. This is beginning to lift at the edges, revealing newly epithelialized tissue underneath. Area of stable eschar on dorsal aspect of L foot, however, is well-adhered and appears to be deeper, indentation in the medial aspect of the wound bed. There is an area of scabbed tissue over the L heel, but this is beginning to lift up, pink intact tissue underneath. On the R leg there is an area of adhered, stable eschar on the anterior aspect of the lower leg, measuring 3cmx1.9cm. Periwound erythema throughout both lower legs, appearance indicative of some possible venous insufficiency as well. This author cleansed both lower legs w/ foaming soap and removed a significant amount of skin and loose scabs. Medihoney gel applied to all areas w/ dried eschar to facilitate debridement of this tissue. Sites then covered w/ Telfa, foam, and secured w/ Kerlix and stretch net. Wound care will plan to f/u w/ patient on Wednesday if he remains inpatient. Wound care orders for DC written.
[2017-05-14] MEDS: GABAPENTIN 300 MG CAP PO SCH (20:53)
[2017-05-15 07:56] VITALS: BP 111/60; PULSE 71; RESP 20; TEMP 97.8; O2SAT 92
[2017-05-15] MEDS: CLOPIDOGREL BISULFATE 75 MG TAB PO SCH (10:11)
[2017-05-15] MEDS: ENOXAPARIN 40 MG/0.4 ML SYR SC SCH (10:11)
[2017-05-15] MEDS: ATORVASTATIN CALCIUM 40 MG TAB PO SCH (10:11)
[2017-05-15] MEDS: ASPIRIN EC 325 MG TAB PO SCH (10:11)
--- NOTE | 2017-05-15 13:50 | GDS ---
[f rep st] DISCHARGE SUMMARY CONSULTATIONS: Infectious Disease, Dr. Chuyita Valdez; Intensive Care, Dr. Bert Gasca; Interventiona l Radiology, Dr. Franci Rachel. PROCEDURES DONE: 1. PICC line insertion. 2. Aortic with runoff CT angiogram. 3. Pelvic arteriogram. 4. Bilateral common iliac artery stent placement. DIAGNOSES: 1. Severe peripheral vascular disease with severe ischemia status post bilateral common iliac artery stents, on aspirin, Plavix, and Lipitor. 2. Lower extremity cellulitis status post IV vancomycin. 3. Lower extremity ischemic ulcers, with ongoing wound care. 4. Body lice status post treatment. 5. Chronic obstructive pulmonary disease, with ongoing tobacco use. 6. Schizoid personality disorder. 7. Homelessness. HOSPITAL COURSE: The patient is a 66-year-old man with the above medical issues. He was admitted wi th bilateral ischemia and cellulitis with ulcers on his lower extremities. He undertook the above pr ocedures and was found to have severe ischemia and underwent bilateral common iliac stents by Dr. Rachel . He had good palpable pulses in the feet postprocedure. He has wounds and will have ongoing wound care posthospitalization, with a clinic visit set up on Wednesday. He also had an episode of lice on admission and is status post treatments without signs of recurrence. He does not need isolation. Kwadwo albright also has a history of COPD, with ongoing tobacco use. He had a mild exacerbation on admission but is satting over 90% on room air at the time of discharge. [facility] above [facility]. He should also stop smoking. CONDITION ON DISCHARGE: VITAL SIGNS: He has been afebrile. Heart rate 71, blood pressure 111/60, r espirations 20. He is 92% on room air. GENERAL: He is alert and oriented. Speech is fluent. HEAR T: Regular. SKIN: Bilateral lower extremity wounds with good bandage cover. DISCHARGE MEDICATIONS: Please see discharge medication form. FOLLOWUP: He has a followup scheduled at [facility] Wednesday and with the [facility] on . He was given medications for 5 days at the time of discharge, and an additional prescription for Lipitor and Plavix were sent to [facility]. He can get these change via [facility] as kwesi jeffries. Total time spent with patient on day of discharge and coordination of care is 35 minutes. /[id number]/MODL
--- NOTE | 2017-05-15 18:55 | ASDISCHSUM ---
Discharge Information Plan Status:Homeless/Senior Living Medically Cleared to Leave:05/14/2017 Discharge Date:05/15/2017 05:08 PM CM D/C Disposition:Home, Routine, Self-Care ADT D/C Disposition:Home, Routine, Self-Care Projected Discharge Date:05/15/2017 05:08 PM Transportation at D/C:Cab Voucher Discharge Delay Reason: Follow-Up Date:05/15/2017 05:08 PM Discharge Slot:2 - 12:01 pm - 18:00 pm Final Diagnosis:COPD exascerbation, LE cellulitis, SOB Placement Information Patient Contact Information Contact Name:ADITISIMI Relationship:Friend Address: City: [facility] Phone: [facility] Code: Email: Financial Information Financial Class:Self-Pay Primary Plan Desc:SELF PAY Primary Plan Number: Secondary Plan Desc: Secondary Plan Number: Assessment Information [facility] CM Progress Note CM Note CM Note Notes: 66 year old male admitted for SOB, COPD exascerbation, LE cellulitis. He has a hx of L5-S1 surgery. Patient is homeless and a smoker. Tx IV ABX. CM to follow for discharge needs. Date Signed: 05/03/2017 04:13 PM Electronically Signed By:Vielka Travis LCSW [facility] CM Progress Note CM Note CM Note Notes: Patient is not eligible to apply for Medicaid but has to apply for Medicare due to his age of 66.Once he has his Medicare, patient can then apply for Medicaid as secondary. Patient is not able to go through the application process alone but needs an advocate to help him. We will contact Medicare to see if they have case workers to help patient's unable to do this alone. CM will follow. Date Signed: 05/05/2017 12:21 PM Electronically Signed By:Macie Wharton LCSW [facility] CM Progress Note CM Note CM Note Notes: CM left a msg with aging and disability resource line to inquire if an advocate can come assist pt in applying for Medicare. CM left a msg for Dio (P#: [phone]) at [facility] for [employer]. CM to follow. Date Signed: 05/05/2017 04:17 PM Electronically Signed By:NICKY Chaudhary [facility] Progress Note CM Note CM Note Notes: I went to speak with patient (please address him by the name 'Lost') today about discharge planning and applying for health insurance. Yesterday, a gentleman named Dio Davis from the [facility] on [employer] ([phone])came to speak with patient about applying for Medicare but was not able to start the process. Dio told me that I would have to call Medicare to assist patient; I did call [phone] and gave patient information - the guest services representative said that they would call patient here at the hospital. I went to speak with patient about this, encouraged him to answer the phone if it rang, and reiterated the importance of getting signed up for Medicare (of note, he is not interested in SSI). Per Char Staley's recommendation for patient's personality type, I initiated a gentle conversation about patient's expectations upon discharge. He is quite realistic about his situation and realizes that returning to the streets/forest in his current condition is not possible. We talked about going to SNF rehab and the hurdles present (lack of insurance at this time, supposed lice infestation) in that plan. The patient expressed that he has had a hard time believing that it's simply lack of blood flow that's preventing his wound healing, which is why he was hesitant to commit to the stenting procedure that was recommended. We talked about how there are likely other factors contributing to his non-healing ulcers (such as poor hygiene and exposure), but that without proper blood supply, there is little chance of meaningful recovery. I asked patient if he wanted to continue living, and he expressed that he is not ready to yet. Given this, he said he's willing to undergo the procedure. Dr Rodriguez, hospitalist, came into the room shortly after our conversation, and patient again agreed to this course of treatment. Dr Rodriguez will consult with IR. Case Management will continue to work with patient on discharge planning and, most importantly, keep track of the status of his Medicare application. I have a feeling we will need to follow up with the Medicare office daily to ensure that they have contacted patient. Again, that number is [phone] Date Signed: 05/07/2017 12:31 PM Electronically Signed By:Leticia Ramos RN [facility] CM Progress Note CM Note CM Note Notes: Patient had a stenting of bilateral common iliac artery. CM to follow. Date Signed: 05/10/2017 05:15 PM Electronically Signed By:Vielka Travis LCSW [facility] CM Progress Note CM Note CM Note Notes: Spoke to patient about applying for Medicare. He states that someone was to call Wednesday but he didn't hear from anyone. Left message for [facility]io [facility] [phone]. Contacted [facility] Sec [phone] and they report that patient's appt is June 04 at 11:15AM or he could apply on-line. Part A would be retro active as of November 2016, Part B would not go into affect until October 2017. He will need to apply for Medicaid in order to be admitted into a SNF at this time. Given his isolation for bed bugs there won't be any SNFs that could offer isolation. Patient's hair would need to be cut and his body treated before he would be considered. Talking with patient, I didn't get the impression that he would go to a SNF. He prefers the outdoors rather than the detention. Date Signed: 05/11/2017 02:34 PM Electronically Signed By:Vielka Travis LCSW [facility] LILLIAN Progress Note CM Note CM Note Notes: Dio alexander [facility] will find staff to come an assist patient with Medicare application. They will bring their computer. Patient needs to apply for Medicare before he can apply for Medicaid. Not certain if patient is willing to go to SNF nor if he will stay 30 days. Date Signed: 05/11/2017 05:33 PM Electronically Signed By:Vielka Travis LCSW [facility] CM Progress Note CM Note CM Note Notes: I spoke with Dio Davis from the [facility]. He has referred this case to Medicare counselor Lon Scales ([phone]). Per Dio, there is more to the process than a simple online application. He says that Lon is trying to figure out how to make an exemption for this patient. I called her and left a message. Per hospitalist, patient is not ready for discharge. Furthermore, we need to clarify the lice/bed bugs/fleas situation. It seems that he has been treated and may not actually be infested. Removing the precautions would certainly ease the care of this patient. Dr Coley will consult with ID to clarify whether patient actually has active infestations or not. Current CM Discharge plan: TBD Date Signed: 05/12/2017 02:08 PM Electronically Signed By:Leticia Ramos RN [facility] Progress Note CM Note CM Note Notes: I received a call from Lon Scales, Medicare counselor, who tried to explain to me the challenges of getting this patient enrolled in Medicare. Per Lon, the patient's problems stem from the fact that he did not enroll before age 66 and therefore missed his window. He can now apply during the "open enrollment" period until June, but he has to go to the SSI office. According to Lon, SSI has some of the most strict confidentiality rules of any agency and it is nearly impossible to do any of this without the patient being present. Given the patient's current - and past - circumstances, I wonder if this is actually realistic. There is also a monthly premium associated with Medicare, which means that patient will also need Medicaid since he is indigent. Lon will continue to pursue options for this case, and she seems to be very considerate of patient's situation. She recommended that we reach out to the Senior Living or [facility] to see if they have any experience in helping clients navigate this cumbersome system. I will pass that on to tomorrow's Machine Or Machinery Mechanic. Current CM Discharge plan: TBD Date Signed: 05/12/2017 03:49 PM Electronically Signed By:Leticia Ramos RN [facility] CM Progress Note CM Note CM Note Notes: spoke w/ Dr. Teague and KIEL Lua regarding d/c POC. Anticipates d/c for tomorrow. scheduled pt appointment w/ [facility] for 05/17/17 @ 9:45AM and scheduled an appointment w/ [facility] outpatient wound clinic for 05/19/17 @ 11AM. [facility] is mapping medications until pt can get to his [facility] appointment on Wednesday. provided pt w/ [facility] outpatient wound clinic brochure and a total of 4 bus passes approved by Mini, hospitality manager. CM will need to help pt w/ transportation home. is able to provide a WC at time of d/c. CM available for changes. Plan: Independent w/ outpatient follow up Date Signed: 05/14/2017 05:02 PM Electronically Signed By:NICKY Chaudhary Case Management Discharge Plan Note Case Management Discharge Discharge Order Complete? Answers: Yes Patient to Obtain Answers: via MAP Medications Transportation Arranged Answers: Taxi - Voucher Transport will Pick (Date 05/15/2017 05:00 PM & Time) EMTALA Complete Answers: No Notes: N/A Case Management Transport Answers: No Notes: N/A Form Complete Faxed Final Orders Answers: No Notes: N/A Agency/Facility Transfer Answers: No Notes: N/A Report Printed & Faxed to Receiving Agency Family Notified Answers: No Notes: Pt declined Discharge Comments Notes: Reviewed chart, spoke w/ KIEL Reed regarding discharge, pt's progress. Per Dr. Hollingsworth, pt to discharge to [facility] today. Met w/ pt to discuss discharge needs. Pt initially confused and unclear about discharge plan. CM spent great deal of time w/ pt explaining discharge. Medical respite bed to be reserved until Wednesday05/18/17 on pt's behalf at [facility]. Spoke w/ Mini Ramesh, Supervisor Drying for approval on medical respite, taxi voucher, MAP, bus passes and clothing donations. CM to provide a taxi voucher and cab from [facility] to [facility]. Medications to be provided through MAP for 5 days. Prescriptions called to [facility] pharmacy w/ day supply. Pt to follow up w/ [facility] on Wed05/17/17 at 0945. Pt to follow up w/ [facility] Wed05/19/17 at 1100. 4 bus passes provided on pt's behalf to assist w/ getting to and from appointments. Wheelchair provided by [facility] to pt. Pt initially admitted w/ lice; clothing still infested per KIEL Reed. New clothing provided (shirt, pants, underwear, socks, shoes, coats, hat) from clothing closet. Pt provided w/ directions, addresses and phone numbers for all follow up appointments. Pt also provided w/ detailed discharge instructions. Education provided on wheelchair use and safety. Pt verbalized understanding. Pt left [facility] via [facility] at 1700 to [facility]. CM avail for any further issues or concerns. Discharge Plan: [facility], Independent Date Signed: 05/15/2017 06:51 PM Electronically Signed By:Paola Figueredo RN [facility] Length of stay for Answers: 7-13 days current admission Acuity / Level of Answers: Yes Care: Did the patient have an inpatient admission? Comorbidities - select Answers: Chronic pulmonary disease all that apply Other Notes: LE wound cellulitis # of Emergency department Answers: 1-2 visits in the last 6 months Social determinants Answers: Homelessness (street, detention) Mental health diagnosis (anxiety, depression, pers onality disorders, etc.) Lack of community resources and/or lack of social support (no pcp, lives alone, transportation, mario d) Score: 22 Date Signed: 05/15/2017 06:54 PM Electronically Signed By:Paola Figueredo RN Intervention Information Intervention Type:*Incorrect Registration Date of Service:04/29/2017 08:06 AM Patient Type:Inpatient Staff Member:KIEL Murray, Nori Hours: Discipline: Severity: Comment: Intervention Type:Cab Vouchers Date of Service:05/15/2017 06:36 PM Patient Type:Inpatient Staff Member:KIEL Figueredo Taylor Hours:0.25 Discipline: Severity: Comment:[employer] called. Transportation arranged from [facility] to [facility]. Cab voucher provided, billed to per prior notes and w/ approval from Mini Ramesh, Supervisor Drying. Intervention Type:Clothing Date of Service:05/15/2017 06:37 PM Patient Type:Inpatient Staff Member:KIEL Figueredo Taylor Hours:0.5 Discipline: Severity: Comment:Pt admitted w/ lice. Prior clothes infested. Shirt, pants, socks, underwe ar, coats, shoes, hat provided from clothing closet. Intervention Type:Education Family/Patient Date of Service:05/15/2017 06:38 PM Patient Type:Inpatient Staff Member:KIEL Figueredo Taylor Hours:0.25 Discipline: Severity: Comment:Support, reassurance, education provid ed to pt regarding discharge plan and follow up . Intervention Type:Senior Living Date of Service:05/15/2017 06:38 PM Patient Type:Inpatient Staff Member:KIEL Figueredo Taylor Hours:0.25 Discipline: Severity: Comment:LVM at [facility] to reserve [facility] respite bed for tonight. to reserve bed for next 3 nocs on pt's behalf per Mini Ramesh, Supervisor Drying. Lisa [facility] daily reservations until Wednesday05/18/17. Pt also given information on [facility] and warming shelters, as well as coordinated entry info. Intervention Type:Bus Pass Date of Service:05/15/2017 06:51 PM Patient Type:Inpatient Staff Member:KIEL Figueredo Taylor Hours: Discipline: Severity: Comment:4 bus passes provided for pt to get to and from scheduled appointments this week.
--- NOTE | 2017-05-17 09:46 | ASMTCMCOM ---
CM Note CM Note Notes: LILLIAN received a call from Paulette at [facility]. Paulette will be providing pt an additional 5 bus passes. Paulette will meet w/ pt today when pt has his pcp follow up. Date Signed: 05/17/2017 09:45 AM Electronically Signed By:NICKY Chaudhary
== END 2017-05-15 17:08 | disposition home or self-care (01) | DRG 252 ==
LOC: F1N 22:15 → F2N 04-29 08:31 → F3E 05-13 12:55
PROVIDERS: ADMIT Family Medicine; ATTEND Family Medicine
PROC: 02HV33Z Insertion of Infusion Device into Superior Vena Cava, Percutaneous Approach (ICD-10-PCS; 2017-04-29)
PROC: 047D3DZ Dilation of Left Common Iliac Artery with Intraluminal Device, Percutaneous Approach (ICD-10-PCS; principal; 2017-05-10)
PROC: 047C3DZ Dilation of Right Common Iliac Artery with Intraluminal Device, Percutaneous Approach (ICD-10-PCS; principal; 2017-05-10)
DX: I70.263 Atherosclerosis of native arteries of extremities with gangrene, bilateral legs (principal); I73.9 Peripheral vascular disease, unspecified; L97.909 Non-pressure chronic ulcer of unspecified part of unspecified lower leg with unspecified severity; J44.1 Chronic obstructive pulmonary disease with (acute) exacerbation; J96.01 Acute respiratory failure with hypoxia; B85.4 Mixed pediculosis and phthiriasis; B37.0 Candidal stomatitis; F60.1 Schizoid personality disorder; E87.2 Acidosis; E87.1 Hypo-osmolality and hyponatremia; G93.40 Encephalopathy, unspecified; F17.210 Nicotine dependence, cigarettes, uncomplicated; Z59.0 Homelessness
CPT/HCPCS: 80307; 96374; 97110-GP; 97116-GP; 97162-GP; 97165-GO; 97530-GP; 97535-GO; C1725; C1751; C1760; C1769; C1874; C1876; G0378; G0472; G0480; J0696; J1644; J1650; J2250; J2310; J2930; J3010; J3370; J7512; J7613; Q9967